=== PATIENT | female | born 1955 | race Caucasian/White ===

== ENCOUNTER 2020-08-01 | Outpatient (REF) | payer OTHER, SELFPAY ==
[2020-08-01 07:53] LABS: Hematocrit 29.8 % (37-47); Hemoglobin 8.8 g/dl (12.0-16.0); Mean Corpuscular HGB Conc 29.5 g/dl (31.0-35.0); Mean Corpuscular Hemoglobin 26.6 pg (27.0-33.0); Mean Platelet Volume 9.5 fL (9.4-12.3); Platelet Count 286 X10*3/uL (160-400); Red Blood Count 3.31 X10*6/uL (4.20-5.50); Red Cell Distribution Width 16.3 % (11.0-16.0); White Blood Count 4.7 X10*3/uL (4.8-10.8)
[2020-08-01 08:27] LABS: Anion Gap 14 (12-20); Blood Urea Nitrogen 16 mg/dL (9-16); Calcium 9.9 mg/dL (8.4-10.2); Carbon Dioxide 24 mmol/L (22-29); Chloride 106 mmol/L (96-108); Estimated Glomerular Filt Rate > 60; Glucose Random 90 mg/dL (60-115); Potassium 3.8 mmol/l (3.3-5.1); Sodium 140 mmol/L (135-145)
== END 2020-08-01 00:01 | disposition home or self-care (01) ==
LOC: HO.MMNH1L
PROVIDERS: Visit Provider Family Medicine
DX: I71.9 Aortic aneurysm of unspecified site, without rupture (principal); I10 Essential (primary) hypertension; Z95.1 Presence of aortocoronary bypass graft
CPT/HCPCS: 36415; 80048; 85027

== ENCOUNTER → 2020-10-25 10:09 | Outpatient (BNVA) | payer OTHER, SELFPAY | PROVIDERS: PCP Nurse Practitioner Family; Visit Provider Family Medicine Adult Medicine | DX: Z76.89 Persons encountering health services in other specified circumstances (principal) ==

== ENCOUNTER → 2020-11-29 13:10 | Outpatient (BNVA) | payer OTHER, SELFPAY | PROVIDERS: PCP Nurse Practitioner Family; Visit Provider Family Medicine Adult Medicine ==

== ENCOUNTER → 2021-01-05 11:58 | Outpatient (BNVA) | payer BC, MEDICARE, SELFPAY | PROVIDERS: PCP Nurse Practitioner Family; Visit Provider Family Medicine Adult Medicine | DX: S88.112A Complete traumatic amputation at level between knee and ankle, left lower leg, initial encounter (principal); I73.9 Peripheral vascular disease, unspecified; Z79.899 Other long term (current) drug therapy | CPT/HCPCS: 99212 ==

== ENCOUNTER → 2021-02-09 10:49 | Outpatient (BNVA) | payer MEDICARE, SELFPAY | PROVIDERS: PCP Nurse Practitioner Family; Visit Provider Family Medicine Adult Medicine | DX: S88.112D Complete traumatic amputation at level between knee and ankle, left lower leg, subsequent encounter (principal); I73.9 Peripheral vascular disease, unspecified | CPT/HCPCS: Q3014 ==

== ENCOUNTER → 2021-03-23 13:34 | Outpatient (BNVA) | payer BC, SELFPAY | PROVIDERS: PCP Nurse Practitioner Family; Visit Provider Family Medicine Adult Medicine | DX: S88.112A Complete traumatic amputation at level between knee and ankle, left lower leg, initial encounter (principal); I73.9 Peripheral vascular disease, unspecified; Z79.899 Other long term (current) drug therapy | CPT/HCPCS: 99212 ==

== ENCOUNTER → 2021-04-20 13:53 | Outpatient (BNVA) | payer BC, SELFPAY | PROVIDERS: PCP Nurse Practitioner Family; Visit Provider Family Medicine Adult Medicine | DX: I73.9 Peripheral vascular disease, unspecified (principal); S88.112D Complete traumatic amputation at level between knee and ankle, left lower leg, subsequent encounter | CPT/HCPCS: 99212 ==

== ENCOUNTER → 2021-05-18 15:28 | Outpatient (BNVA) | payer BC, SELFPAY | PROVIDERS: PCP Nurse Practitioner Family; Visit Provider Family Medicine Adult Medicine | DX: S88.112D Complete traumatic amputation at level between knee and ankle, left lower leg, subsequent encounter (principal); I73.9 Peripheral vascular disease, unspecified | CPT/HCPCS: 99212 ==

== ENCOUNTER → 2021-06-14 14:53 | Outpatient (BNVA) | payer MEDICARE, SELFPAY | PROVIDERS: PCP Nurse Practitioner Family; Visit Provider Nurse Practitioner Family | DX: Z51.81 Encounter for therapeutic drug level monitoring (principal); T87.89 Other complications of amputation stump; I73.9 Peripheral vascular disease, unspecified | CPT/HCPCS: 99212 ==

== ENCOUNTER → 2021-07-11 11:31 | Outpatient (BNVA) | payer MEDICARE, SELFPAY | PROVIDERS: PCP Nurse Practitioner Family; Visit Provider Family Medicine Adult Medicine | DX: Z51.81 Encounter for therapeutic drug level monitoring (principal); I73.9 Peripheral vascular disease, unspecified; Z89.512 Acquired absence of left leg below knee | CPT/HCPCS: 99212 ==

== ENCOUNTER → 2021-10-06 11:48 | Outpatient (BNVA) | payer MEDICARE, SELFPAY | PROVIDERS: PCP Nurse Practitioner Family; Visit Provider Internal Medicine | DX: M54.50 Low back pain, unspecified (principal); M25.561 Pain in right knee | CPT/HCPCS: 99212 ==

== ENCOUNTER 2021-11-15 07:10 | Outpatient (REF) | payer MEDICARE, SELFPAY ==
--- NOTE | ~2021-11-15 | XR_ITS ---
EXAMINATION: XR LUMBOSACRAL SPINE CLINICAL INFORMATION: Low back pain COMPARISON: None TECHNIQUE: Three views of the lumbosacral spine. FINDINGS: Bone alignment is normal. There is a mild old L2 vertebral body compression fracture. No acute fracture is seen. There is degenerative spondylosis greatest at L1-L2. There is degenerative disc disease at T12-L1, L1-L2 and L5-S1. There is lower lumbar spine facet arthritis. There is evidence of atherosclerotic disease. There is arthritis at the hip joints. XR/XR lumbar spine 2-3V IMPRESSION: Old L2 vertebral body compression fracture. Degenerative changes.
== END 2021-11-15 07:11 | disposition home or self-care (01) ==
LOC: HO.RADIR 07:10
PROVIDERS: Visit Provider Internal Medicine
DX: M25.561 Pain in right knee (principal); M54.50 Low back pain, unspecified; Z79.899 Other long term (current) drug therapy; Z87.891 Personal history of nicotine dependence
CPT/HCPCS: 64450; 64454; 72100

== ENCOUNTER → 2021-11-17 08:53 | Outpatient (BNVA) | payer MEDICARE, SELFPAY | PROVIDERS: PCP Nurse Practitioner Family; Visit Provider Internal Medicine | DX: M25.561 Pain in right knee (principal); M47.816 Spondylosis without myelopathy or radiculopathy, lumbar region | CPT/HCPCS: Q3014 ==

== ENCOUNTER 2023-07-04 14:45 | Outpatient (AMB) | payer MEDICARE, SELFPAY ==
--- OUTSIDE RECORDS SUMMARY | 2023-07-04 14:46 | XMS_ITS | Continuity of Care Document ---
Author Name Unknown Organization [facility] Address [address] [place] [address]- Care Team Providers Care Payroll Supervisor Name Role Phone Mohamud NICHOLAS, Elver Tanner Primary Care Physician [phone] [facility] [facility] Date(s): 05/28/23 - 06/27/23 [facility] Physical Medicine and Rehabilitation [address] [place] [address]- Attending Physician: Alex Daugherty Admitting Physician: Alex Daugherty Referring Physician: AdmtrAlex Allergies, Adverse Reactions, Alerts No Known Medication Allergies Medications Alprazolam By Mouth, Refills 0, Maintenance, 09/15/21 11:04:00 EST, Partial fill upon patient request if the prescription is for a schedule II opioid drug. Start Date: 09/15/21 Status: Ordered Amlodipine By Mouth, Daily, 0 Refills, Maintenance, 09/15/21 11:04:00 EST, Partial fill upon patient request if the prescription is for a schedule II opioid drug. Start Date: 09/15/21 Status: Ordered aspirin 81 mg oral delayed release tablet 81 mg, 1, tablet, By Mouth, Daily, # 30 tablet, Refills 0, Maintenance, 05/28/23 13:07:00 EDT, Partial fill upon patient request if the prescription is for a schedule II opioid drug. Start Date: 05/28/23 Status: Ordered gabapentin 300 mg oral capsule 300 mg, 1, capsule, By Mouth, 3 times a day, Refills 0, Maintenance, 05/28/23 13:08:00 EDT, Partialfill upon patient request if the prescription is for a schedule II opioid drug. Start Date: 05/28/23 Status: Ordered Sertraline By Mouth, Daily, 0 Refills, Maintenance, 09/15/21 11:04:00 EST, Partial fill upon patient request if the prescription is for a schedule II opioid drug. Start Date: 09/15/21 Status: Ordered Tylenol 8 Hour Caplet = 1,300 mg, By Mouth, Every 8 hours, 0 Refills, Maintenance, 09/15/21 11:04:00 EST, Partial fill upon patient request if the prescription is for a schedule II opioid drug. Start Date: 09/15/21 Status: Ordered Problem List Condition Confirmation Course Effective Dates Status Health St atus Informant Obese class II Confirmed Active Social History Social History Type Response Smoking Status Former smoker, quit more than 30 days ago entered on: 01/12/22 Sex Patient Care team information Care Team Personnel Name: Elver Mallory NP Position: Reference Physician Member Role: PCP Address: Address: [address] [place] [address]- Care Team Related Persons Name: YONAS NAGY Address: [address] [address] Name: EMERITA NAGY
--- OUTSIDE RECORDS SUMMARY | 2023-07-04 14:46 | XMS_ITS | Continuity of Care Document ---
Author Name Unknown Organization [facility] Physical Hi dicine and Rehabilitation Address [address] [place] [address]- Care Team Providers Care Belt And Link Shop Supervisor Name Role Phone Mohamud NICHOLAS, Elver Tanner Primary Care Physician [facility] Date(s): 05/12/21 - 06/11/21 [facility] Medicine and Rehabilitation [address] [place] [address] Attending Physician: Alex Daugherty Admitting Physician: Alex Daugherty Referring Physician: Alex Daugherty
--- OUTSIDE RECORDS SUMMARY | 2023-07-04 14:46 | XMS_ITS | Continuity of Care Document ---
Author Name Unknown Organization [facility] ter Address [address] [place] [address]- Care Team Providers Care Contracts Administrator Name Role Phone Mona NICHOLAS, Vashti Duvall Primary Care Physician Encounter [facility] Date(s): 03/16/20 - 04/16/[address] [address]- [facility] Attending Physician: Maurice Mcleod MD Admitting Physician: Maurice Mcleod MD
--- OUTSIDE RECORDS SUMMARY | 2023-07-04 14:46 | XMS_ITS | Continuity of Care Document ---
Author Name Unknown Organization [facility] Physical [facility] dicine and Rehabilitation Address [address] [place] [address]- Care Team Providers Care Plaster Die Maker Name Role Phone Mohamud NICHOLAS, Elver Tanner Primary Care Physician En[place] [facility] [place] Date(s): 11/16/22 - 12/16/22 [facility] Medicine and Rehabilitation [address] [place] [address]- Attending Physician: Alex Daugherty Admitting Physician: Alex [...] opioid drug. Start Date: 09/15/21 Status: Ordered Sertraline By Mouth, Daily, 0 [...] Status Health St atus Informant Obese class I Confirmed Active Social History Social History Type Response Smoking Status Former smoker, quit more than 30 days ago entered on: 01/12/22 Sex Patient Care team information Care Team Personnel Name: Elver Mallory NP Position: Reference Physician Member Role: PCP Address: Address: [address] [place] [address]- Care Team Related Persons Name: YONAS NAYG Address: [address] [address] Name: EMERITA NAGY
--- OUTSIDE RECORDS SUMMARY | 2023-07-04 14:46 | XMS_ITS | Continuity of Care Document ---
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
--- OUTSIDE RECORDS SUMMARY | 2023-07-04 14:46 | XMS_ITS | Continuity of Care Document ---
Author Name Unknown Organization [facility] Physical Az dicine and Rehabilitation Address [address] [place] [address]- Care Team Providers Care Pipeline Maintenance Supervisor Name Role Phone Elver Mallory NP Primary Care Physician [phone] En[facility] [place] Date(s): 09/14/22 - 12/16/22 [facility] Physical Medicine and Rehabilitation [address] [place] [address]- Attending Physician: Mahesh Dennis MD Referring Physician: Elver Mallory NP Allergies, Adverse [...] Reference Physician Member Role: PCP Address: Address: [address] [place] [address]- Care Team Related Persons Name: YONAS NAGY Address: home [address] [place] [address] Name: EMERITA NAGY
--- OUTSIDE RECORDS SUMMARY | 2023-07-04 14:46 | XMS_ITS | Continuity of Care Document ---
Author Name Unknown Organization [facility] Address [address] [place] [address]- Care Team Providers Care Processor Inspector Name Role Phone Elver Mallory NP Primary Care Physician [phone] Encounter [facility] Date(s): 01/23/21 - 04/19/[address] [address] Discharge Disposition: A-D/C Home Attending Physician: Elver Mallory NP Admitting Physician: Elver Mallory NP Referring Physician: Elver Mallory NP
--- OUTSIDE RECORDS SUMMARY | 2023-07-04 14:46 | XMS_ITS | Continuity of Care Document ---
Author Name Unknown Organization [facility] Physical Me dicine and Rehabilitation Address [address] [place] [address]- Care Team Providers Care Wool Scourer Name Role Phone Mohamud NICHOLAS, Elver Tanner Primary Care Physician Encounter [facility] [place] Date(s): 03/15/23 - 03/22/23 [facility] Physical Medicine and Rehabilitation [address] [place] [address]- Attending Physician: Mahesh Dennis MD Allergies, Adverse Reactions, Alerts No Known Medication [...] atus Informant Obese class II Confirmed Active Vital Signs Most recent to oldest [Reference Range]: 1 Height 173 cm (03/15/23 9:13 AM) Weight 105.6 kg (03/15/23 9:13 AM) Oxygen Saturation [94-100 %] 96 % (03/15/23 9:13 AM) Pulse Rate [55-90 bpm] 86 bpm (03/15/23 9:13 AM) Body Mass Index [18.5-24.99 kg/m2] 35.28 kg/m2 *>HHI* (03/15/23 9:13 AM) Blood Pressure [90-138/55-84 mm Hg] 147/ 84mm Hg *H* (03/15/23 9:13 AM) Mode of Delivery (Oxygen) Room air (03/15/23 9:13 AM) Blood pressure sites Arm, left (03/15/23 9:13 AM) Social History Social History Type Response Smoking Status Former smoker, quit more than 30 days ago entered on: 01/12/22 Sex Patient Care team information Care Team Personnel Name: Elver Mallory NP Position: Reference Physician Member Role: PCP Address: Address: [address] [place] [address]- Care Team Related Persons Name: YONAS NAGY Address: home [address] [place] [address] Name: EMERITA NAGY
--- OUTSIDE RECORDS SUMMARY | 2023-07-04 14:46 | XMS_ITS | Continuity of Care Document ---
Author Name Unknown Organization [facility] Physical Me dicine and Rehabilitation Address Unknown Care Team Providers Care Automatic Vulcanizing Operator Name Role Phone Mohamud NICHOLAS, Elver Tanner Primary Care Physician [phone] Encounter [place] Date(s): 01/12/22 - 01/19/22 [facility] Physical Medicine and Rehabilitation Attending Physician: Baljinder Bianchi MD Referring Physician: Elver Mallory NP Allergies, [...] Date: 09/15/21 Status: Ordered Problem List Condition Effective Dates Status Health Status Inform ant Obese class I(Confirmed) Active Vital Signs Most recent to oldest [Reference Range]: 1 Height 173 cm (01/12/22 10:07 AM) Weight 98.4 kg (01/12/22 10:07 AM) Oxygen Saturation [94-100 %] 95 % (01/12/22 10:07 AM) Pulse Rate [55-90 bpm] 71 bpm (01/12/22 10:07 AM) Body Mass Index [18.5-24.99] 32.88 *>HHI* (01/12/22 10:07 AM) Blood Pressure [90-138/55-84 mm Hg] 124/ 81mm Hg (01/12/22 10:07 AM) Temperature [96.8-100.4 DegF] 97.0 DegF (01/12/22 10:07 AM) Mode of Delivery (Oxygen) Room air (01/12/22 10:07 AM) Blood pressure sites Arm, left (01/12/22 10:07 AM) Temperature Route Temporal (01/12/22 10:07 AM) Dry Weight 98.4 kg (01/12/22 10:07 AM) Social History Social History Type Response Smoking Status Former smoker, quit more than 30 days ago entered on: 01/12/22 Sex
--- OUTSIDE RECORDS SUMMARY | 2023-07-04 14:46 | XMS_ITS | Continuity of Care Document ---
Author Name Unknown Organization [facility] Physical Mi dicine and Rehabilitation Address [address] [place] [address]- Care Team Providers Care Third Cook Name Role Phone Elver Mallory NP Primary Care Physician [id number] Date(s): 05/28/23 - 06/04/23 [facility] Physical Medicine and Rehabilitation [address] [place] [address]- Attending Physician: Fernie Ko MD Referring Physician: Elver Mallory NP Allergies, [...] oldest [Reference Range]: 1 Height 173 cm (05/28/23 1:08 PM) Weight 106.7 kg (05/28/23 1:08 PM) Oxygen Saturation [94-100 %] 97 % (05/28/23 1:08 PM) Body Mass Index [18.5-24.99 kg/m2] 35.65 kg/m2 *>HHI* (05/28/23 1:08 PM) Blood Pressure [90-138/55-84 mm Hg] 138/ 77mm Hg (05/28/23 1:08 PM) Mode of Delivery (Oxygen) Room air (05/28/23 1:08 PM) Blood pressure sites Arm, left (05/28/23 1:08 PM) Weight Obtained Via Bed scale (05/28/23 1:08 PM) Social History Social History Type Response Smoking Status Former smoker, quit more than 30 days ago entered on: 01/12/22 Sex Patient Care team information Care Team Personnel Name: Elver Mallory NP Position: Reference Physician Member Role: PCP Address: Address: [address] [place] [address]- Care Team Related Persons Name: YONAS NAGY Address: home [address] [place] [address] Name: EMERITA NAGY
--- OUTSIDE RECORDS SUMMARY | 2023-07-04 14:46 | XMS_ITS | Continuity of Care Document ---
Author Name Unknown Organization [facility] Physical De dicine and Rehabilitation Address [address] [place] [address]- Care Team Providers Care Shaker Plate Operator Name Role Phone Elver Mallory NP Primary Care Physician Encounter [facility] [place] Date(s): 02/11/21 - 06/11/21 [facility] Physical Medicine and Rehabilitation [address] [place] [address]- Attending Physician: Mahesh Dennis MD Referring Physician: Elver Mallory NP
--- OUTSIDE RECORDS SUMMARY | 2023-07-04 14:46 | XMS_ITS | Continuity of Care Document ---
Author Name Unknown Organization [facility] Address [address] [place] [address]- Care Team Providers Care Turbine Inspector Name Role Phone Mohamud NICHOLAS, Elver Tanner Primary Care Physician [phone] [place] [facility] [place] 12[place]18/22 - 06/16/[address] [address]- Encounter Diagnosis Aftercare following joint replacement surgery(Final) - Discharge Disposition: A-D/C Home Attending Physician: Maxime Huntley MD Admitting Physician: Maxime Huntley MD Referring Physician: Maxime Huntley MD Allergies, Adverse Reactions, Alerts No Known [...] a schedule II opioid drug. Start Date: 8/1/23 Status: Ordered Sertraline By Mouth, Daily, 0 [...] Reference Physician Member Role: PCP Address: Address: [address] [place] [address]- Care Team Related Persons Name: YONAS NAGY Address: [address] [address] Name: EMERITA NAGY
--- OUTSIDE RECORDS SUMMARY | 2023-07-04 14:46 | XMS_ITS | Continuity of Care Document ---
Author Name Unknown Organization [facility] Physical Me dicine and Rehabilitation Address Unknown Care Team Providers Care Patients Transporter Name Role Phone Mohamud NICHOLAS, Elver Tanner Primary Care Physician [phone] Encounter [facility] [place] Date(s): 05/11/22 - 06/10/22 [facility] Physical Medicine and Rehabilitation Attending Physician: Alex Daugherty Admitting Physician: Alex Daugherty Referring Physician: Alex Daugherty Allergies, Adverse Reactions, Alerts No Known Medication [...] Status Inform ant Obese class I(Confirmed) Active Social History Social History Type Response Smoking Status Former smoker, quit more than 30 days ago entered on: 01/12/22 Sex
--- OUTSIDE RECORDS SUMMARY | 2023-07-04 14:46 | XMS_ITS | Continuity of Care Document ---
Author Name Unknown Organization [facility] Address [address] [place] [address]- Care Team Providers Care Product Marketing Manager Name Role Phone Elver Mallory NP Primary Care Physician [phone] Encounter [facility] [place] Date(s): 07/26/22 - 08/25/[address] [address]- Attending Physician: Alex Daugherty Admitting Physician: Alex [...] on: 01/12/22 Sex Patient Care team information Personnel Name: Mohamud NICHOLAS , Elver Tanner Address: Address: [address] [place] [address]
--- OUTSIDE RECORDS SUMMARY | 2023-07-04 14:46 | XMS_ITS | Continuity of Care Document ---
Author Name Unknown Organization [facility] Physical Me dicine and Rehabilitation Address Unknown Care Team Providers Care Plasma Center Technician Name Role Phone Mohamud NICHOLAS, Elver Tanner Primary Care Physician [place] [facility] [place] 01/12/22 - 02/11/22 [facility] Physical Medicine and Rehabilitation Attending Physician: Alex [...]
--- OUTSIDE RECORDS SUMMARY | 2023-07-04 14:46 | XMS_ITS | Continuity of Care Document ---
Author Name Unknown Organization [facility] Physical Me dicine and Rehabilitation Address Unknown Care Team Providers Care Time Clock Inspector Name Role Phone Mohamud NICHOLAS, Elver Tanner Primary Care Physician [place] [facility] [place] 05[place]11[place]22 - 05/18/22 [facility] Physical Medicine and Rehabilitation Attending Physician: Arnaldo Dennis MD Allergies, Adverse Reactions, Alerts No [...] oldest [Reference Range]: 1 Height 173 cm (05/11/22 9:38 AM) Weight 101.7 kg (05/11/22 9:38 AM) Oxygen Saturation [94-100 %] 96 % (05/11/22 9:38 AM) Pulse Rate [55-90 bpm] 88 bpm (05/11/22 9:38 AM) Body Mass Index [18.5-24.99] 33.98 *>HHI* (05/11/22 9:38 AM) Blood Pressure [90-138/55-84 mm Hg] 133/ 71mm Hg (05/11/22 9:38 AM) Mode of Delivery (Oxygen) Room air (05/11/22 9:38 AM) Blood pressure sites Arm, left (05/11/22 9:38 AM) Dry Weight 101.7 kg (05/11/22 9:38 AM) Social History Social History Type Response Smoking Status Former smoker, quit more than 30 days ago entered on: 01/12/22 Sex
--- OUTSIDE RECORDS SUMMARY | 2023-07-04 14:47 | XMS_ITS | Continuity of Care Document ---
Author Name Unknown Organization [facility] Address [address] [place] [address]- Care Team Providers Care Tobacco Packing Machine Operator Name Role Phone oMhamud NICHOLAS, Elver Tanner Primary Care Physician [place] [facility] [place] 11/17/21 - 05/10/[address] [address] Discharge Disposition: A-D/C Home Attending Physician: Elver [...]
--- OUTSIDE RECORDS SUMMARY | 2023-07-04 14:47 | XMS_ITS | Continuity of Care Document ---
Author Name Unknown Organization [facility] Address [address] [place] [address]- Care Team Providers Care Log Washer Name Role Phone Mohamud NICHOLAS, Elver Tanner Primary Care Physician [place] [facility] [place] 04/18/23 - 05/18/[address] [address]- Attending Physician: Alex Daugherty Admitting Physician: AdmtrAlex Referring Physician: Admtr, ArAna Allergies, Adverse Reactions, Alerts No Known Medication [...] Physician Member Role: PCP Address: Address: [address] [place] [address]- Care Team Related Persons Name: YONAS NAGY Address: home [address] [place] [address] [place] [address] Name: EMERITA NAGY
--- OUTSIDE RECORDS SUMMARY | 2023-07-04 14:47 | XMS_ITS | Continuity of Care Document ---
Author Name Unknown Organization [facility] ter Address [address] [place] [address]- Care Team Providers Care Tissue Coordinator Name Role Phone Mona NICHOLAS, Vashti Duvall Primary Care Physician Encounter [facility] Date(s): 12/02/19 - 12/02/[address] [address]- [facility] Attending Physician: Quentin HAINES, Adolfo Schmid
--- OUTSIDE RECORDS SUMMARY | 2023-07-04 14:47 | XMS_ITS | Continuity of Care Document ---
Author Name Unknown Organization [facility] Address [address] [place] [address]- Care Team Providers Care Communication Engineer Name Role Phone Elver Mallory NP Primary Care Physician [phone] Encounter [facility] Date(s): 03/14/21 - 06/28/[address] [address] Discharge Disposition: A-D/C Home Attending Physician: Elver Mallory NP Admitting Physician: Elver Mallory NP Referring Physician: Elver Mallory NP
--- OUTSIDE RECORDS SUMMARY | 2023-07-04 14:47 | XMS_ITS | Continuity of Care Document ---
Author Name Unknown Organization [facility] Address [address] [place] [address]- Care Team Providers Care Assistant City Attorney Name Role Phone Mohamud NICHOLAS, Elver Tanner Primary Care Physician Encounter [facility] [place] Date(s): 12/22/21 - 01/21/[address] [address]- Attending Physician: Alex Daugherty Admitting Physician: Alex [...]
--- OUTSIDE RECORDS SUMMARY | 2023-07-04 14:47 | XMS_ITS | Continuity of Care Document ---
Author Name Unknown Organization [facility] Physical Me dicine and Rehabilitation Address Unknown Care Team Providers Care Fire And Explosion Investigator Name Role Phone Elver Mallory NP Primary Care Physician [phone] Encounter [facility] [place] Date(s): 09/15/21 - 09/22/21 [facility] Physical Medicine and Rehabilitation Attending Physician: Mahesh Dennis MD Referring Physician: [...] oldest [Reference Range]: 1 Height 173 cm (09/15/21 11:01 AM) Weight 94.8 kg (09/15/21 11:01 AM) Oxygen Saturation [94-100 %] 97 % (09/15/21 11:01 AM) Pulse Rate [55-90 bpm] 74 bpm (09/15/21 11:01 AM) Body Mass Index [18.5-24.99] 31.67 *>HHI* (09/15/21 11:01 AM) Blood Pressure [90-138/55-84 mm Hg] 132/ 86mm Hg (09/15/21 11:01 AM) Temperature [96.8-100.4 DegF] 96.7 DegF *L* (09/15/21 11:01 AM) Blood pressure sites Arm, left (09/15/21 11:01 AM) Temperature Route Temporal (09/15/21 11:01 AM)
--- OUTSIDE RECORDS SUMMARY | 2023-07-04 14:47 | XMS_ITS | Continuity of Care Document ---
Author Name Unknown Organization [facility] Address [address] [place] [address]- Care Team Providers Care Roto Gravure Press Operator Name Role Phone Mohamud NICHOLAS, Elver Tanner Primary Care Physician Encounter [facility] [place] Date(s): 05/22/22 - 05/22/[address] [address] Discharge Disposition: A-D/C Home Attending Physician: Not on Staff, Attending MD Admitting Physician: Not on Staff, Admitting MD Referring Physician: Not on Staff, Referring MD Allergies, Adverse Reactions, Alerts No Known [...]
--- OUTSIDE RECORDS SUMMARY | 2023-07-04 14:47 | XMS_ITS | Continuity of Care Document ---
Author Name Unknown Organization [facility] Physical Me dicine and Rehabilitation Address Unknown Care Team Providers Care Poured Pipe Maker Name Role Phone Mohamud NICHOLAS, Elver Tanner Primary Care Physician Encounter [facility] [place] Date(s): 09/15/21 - 10/15/21 [facility] Physical Medicine and Rehabilitation Attending Physician: Alex Daugherty Admitting Physician: Alex Daughrety Referring Physician: Alxe Daugherty Allergies, Adverse Reactions, Alerts No Known [...]
--- OUTSIDE RECORDS SUMMARY | 2023-07-04 14:47 | XMS_ITS | Continuity of Care Document ---
Author Name Unknown Organization [facility] Address [address] [place] [address]- Care Team Providers Care Oxygen Furnace Operator Name Role Phone Mohamud NICHOLAS, Elver Tanner Primary Care Physician Encounter [facility] Date(s): 04/14/21 - 05/14/[address] [address]- Attending Physician: Alex Daugherty Admitting Physician: Alex Daugherty Referring Physician: Alex Daugherty
--- NOTE | 2023-07-04 15:11 | AM.OFFWIN_ITS ---
Intake Vital Signs 07/04/23 15:13 Height 5 ft 6 in Weight 232 lb BMI 37.4 BP 120/80 Blood Pressure Location Rt brachial Position Sitting Pulse 74 Pulse Source Pulse Oximeter Temp 97.9 F Temp Source Temporal Artery Scan Pulse Oximetry (%) 97 Intake Visit Reasons: EP, Shingles? ([phone]) Intake Note: pt is here for c/o possible shingles Patient Tobacco Use Status: Former Tobacco user Allergies No Known Allergies Allergy (Verified 07/04/23 15:12) Do you need a note to return to daycare/school/sports/work: Yes HPI HPI Comments History of Present Illness Details 67-year-old female who presents for a rash. Patient was receiving practice cortisone injections in preparation for her actual cortisone shots in the noticed a rash on her lower back side. She denies any pain, itching fever chills. her aide in the staff at the facility thought it might be shingles and wanted her to be evaluated [facility] Medical History Refused pneumococcal vaccination Lumbar spondylosis Right knee pain Low back pain History of left below knee amputation Phantom pain following amputation of lower limb Anxiety Occlusion of left femorotibial bypass graft AAA (abdominal aortic aneurysm) Smoker HTN (hypertension) Below-knee amputation of left lower extremity Peripheral arterial disease Surgical History (Updated 11/06/22 @ 10:09 by AYLA Gaston-SANTHOSH) History of total left hip replacement History of total right hip replacement History of angioplasty History of angioplasty Family History Father Colon cancer Mother HTN (hypertension) Stroke Brother Colon cancer Sister Stroke Breast cancer Social History Housing: Apartment Alcohol intake: never Patient Tobacco Use Status: Former Tobacco user Years Smoked: 42 years ago e-Cigarette/Vaping Use: Never Used Second Hand Smoke Exposure: Yes 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 No pain with palpation no excoriations. rash on the anterior surface of the right thigh with excoriations. puritic maculopapular Assessment & Plan Assessment & Plan (1) Rash: Code(s): R21 - Rash and other nonspecific skin eruption Plan rash on lower back consistent with a vesicular rash however in the absence of pain or any symptoms low suspicion for shingles. Rash on the anterior surface of the thigh with excoriations Puritic will prescribe steroid triamcinolone cream. Medications: New triamcinolone acetonide 0.1% 1 appl topical BID 30 grams 0RF Coding Level of Care Code Est Pt Level 3 (40262) Diagnoses Rash R21
[2023-07-04 15:13] VITALS: BP 120/80; PULSE 74; TEMP 36.6; O2SAT 97; BMI 37.4
== END 2023-07-04 15:38 | disposition home or self-care (01) ==
PROVIDERS: PCP Nurse Practitioner Family; Visit Provider Physician Assistant
DX: R21 Rash and other nonspecific skin eruption (principal)
CPT/HCPCS: 99213

== ENCOUNTER 2023-12-18 10:09 | Outpatient (AMB) | payer MEDICARE, SELFPAY ==
--- NOTE | 2023-12-18 10:13 | MHC.PC.OV ---
Vital Signs 12/18/23 10:14 Height 5 ft 6 in Weight 232 lb BMI 37.4 BP 132/80 Blood Pressure Location Rt brachial Position Sitting Pulse 78 Pulse Source Pulse Oximeter Pulse Oximetry (%) 96 Oxygen Delivery Method Room Air Intake Visit Reasons: Prosthetic Left Leg Check-up Intake Note: pt is here for follow up prosthetic leg check up Allergies No Known Allergies Allergy (Verified 12/18/23 11:48) Medication List - Last Reconciled 12/18/23 by LANEY Gaston acetaminophen (Tylenol) 325 mg PO QID PRN alprazolam 0.25 mg PO BID PRN 30 days amlodipine 5 mg PO DAILY aspirin 81 mg PO DAILY atorvastatin 10 mg PO DAILY gabapentin 1,200 mg PO 1 cap in the am, 2 caps at 2pm, 2 caps at night; 3 reserve 24 days sertraline 50 mg PO DAILY triamcinolone acetonide 0.1% 1 appl topical BID Tobacco use date assessed: 12/18/23 HPI Prosthetic Left Leg Check-up HPI Details Pt reports discoloration and coldness of her LLE stump. She reports that the area becomes purplish in color and becomes very cold. She reports intermittent numbness of this area as well. Pt does not have these symptoms of her hands. Pt is seeing vascular but can not get in to see her provider for some time. Will contact their office to try to find a sooner appointment. HTN: Blood pressure is stable, managed with amlodipine 5mg. Will order labs. Denies chest pain, shortness of breath, headache, dizziness, and blurred vision. [facility] Medical History Refused pneumococcal vaccination Lumbar spondylosis Right knee pain Low back pain Phantom pain following amputation of lower limb Anxiety Occlusion of left femorotibial bypass graft AAA (abdominal aortic aneurysm) Smoker HTN (hypertension) Below-knee amputation of left lower extremity Peripheral arterial disease Surgical History History of left below knee amputation History of total left hip replacement History of total right hip replacement History of angioplasty History of angioplasty Family History Father Colon cancer Mother HTN (hypertension) Stroke Brother Colon cancer Sister Stroke Breast cancer Social History Housing: Apartment Alcohol intake: never Patient Tobacco Use Status: Former Tobacco user Years Smoked: 42 years ago e-Cigarette/Vaping Use: Never Used Second Hand Smoke Exposure: Yes 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 1. Little interest or pleasure in doing things: not at all 2. Feeling down, depressed, or hopeless: several days 3. Trouble falling or staying asleep, or sleeping too much: several days 4. Feeling tired or having little energy: not at all 5. Poor appetite or overeating: not at all 6. Feeling bad about yourself - or that you are a failure or have let yourself or your family down: not at all 7. Trouble concentrating on things, such as reading the newspaper or watching television: not at all 8. Moving or speaking so slowly that other people could have noticed. Or the opposite - being so fidgety or restless that you have been moving around a lot more than usual: not at all 9. Thoughts that you would be better off or of hurting yourself in some way: not at all Total score: 2 Depression Screening Interpretation: Negative Depression Screening Done: Yes 00853 - PHQ-9 Billing: Yes Source: Developed by Drs. Álvaro Louise, Rhonda Mathis, Ricky Gentile and colleagues, with an educational anil from [employer]. Thrive Questionnaire Date Thrive assessed: 12/18/23 I am a: Patient What is your living situation today?: I have a steady place to live Within the past 12 months, did the food you bought not last and you didn't have the money to get more?: Never true Within the past 12 months, did you worry whether your food would run out before you got money to buy more?: Never true Do you have trouble paying for medicines?: No Do you have trouble getting transportation to medical appointments?: No Do you have trouble paying your heating and electricity bill?: No Do you have trouble taking care of your child, family member or friend?: No Do you have trouble with day-to-day activities such as bathing, preparing meals, shopping, managing finances, etc.?: No Are you currently unemployed and looking for a job?: No Are you interested in more education?: No Please select the resources that you would like help with: None Currently or been in a relationship where the following occur: no concerns reported THRIVE Score: 0 KIMBERLY-7 AMB Questionnaire KIMBERLY-7 Date KIMBERLY - 7 assessed: 12/18/23 Feeling nervous, anxious, or on edge: 0 = Not at all Not being able to stop or control worryin = Not at all Worrying too much about different things: 0 = Not at all Trouble relaxin = Not at all Being so restless that it is hard to sit still: 0 = Not at all Becoming easily annoyed or irritable: 0 = Not at all Feeling afraid as if something awful might happen: 0 = Not at all Total KIMBERLY-7 score (0-4 normal; 5-9 mild; 10-14 moderate; 15-21 severe): 0 Source: Developed by Drs. Álvaro Louise, Rhonda Mathis, Ricky Gentile and colleagues, with an educational anil from [employer]. KIMBERLY-7 Assessment Billing KIMBERLY-7 Assessment Tool: KIMBERLY-7 Assessment 38009 Review of Systems Const Reports as per HPI Physical exam (Primary Care) Vital Signs: Last Vital Signs Pulse 78 12/18/23 10:14 BP 132/80 12/18/23 10:14 Pulse Ox 96 12/18/23 10:14 Oxygen Delivery Method Room Air 12/18/23 10:14 BMI result Body Mass Index 37.4 Tobacco/Smoking Status: Tobacco use Status Tobacco use date assessed 12/18/23 12/18/23 10:26 Patient Tobacco Use Status Former Tobacco user 12/18/23 10:14 e-Cigarette/Vaping Use Never Used 12/18/23 10:14 PHQ-9: PHQ-9 Score PHQ-9: Total score 2 12/18/23 10:39 Depression Screening Interpretation: Negative Thrive Assessment: Date of Thrive Assessment Date Thrive assessed 12/18/23 12/18/23 10:26 Currently or been in a relationship where the following occur: no concerns reported Const General: cooperative Nutritional Appearance: obese Orientation/consciousness: patient oriented x3 Resp Effort & Inspection: normal respiratory effort Auscultation: clear to auscultation bilaterally Cardio Rate: regular rate Rhythm: regular rhythm Heart sounds: S1 normal heart sound present and S2 normal heart sound present Neuro General: patient oriented x3 Extrem Other: left BKA, purplish/bluish hue to stump, cool to touch, good cap refill Psych Appearance: grossly normal Mental Status: mental status grossly normal Speech and movement: Normal speech and movement present Affect: normal affect Attitude: cooperative Thought process: Normal thought process present Thought content: Normal thought content present Insight: Good insight present (Psych) Judgement: Good judgement present (Psych) Assessment and Plan Assessment & Plan (1) HTN (hypertension): Comment: please continue meds Code(s): I10 - Essential (primary) hypertension Plan: lab orders placed (2) Bluish skin discoloration: Code(s): R23.0 - Cyanosis Plan: contacting pt's vascular provider for sooner appointment Plan The patient agreed to the use of a medical record librarians teacher for this encounter. Scribed for AYLA Dixon-BC by Sharlene Servin medical record librarians teacher, on 12/18/2023 at 10:40 EST. Orders: Orders TSH reflex Free T4 Today I10 - Essential (primary) hypertension UA CC w/rflx Micro + Cult Today I10 - Essential (primary) hypertension MM screening mammo BI Today Z12.31 - Encounter for screening mammogram for malignant neoplasm of breast Lactic Acid Today R23.0 - Cyanosis Complete Blood Count Auto Diff Today I10 - Essential (primary) hypertension Comprehensive [place]. Panel Fast Today I10 - Essential (primary) hypertension Lipid Panel Today I10 - Essential (primary) hypertension Coding Level of Care Code Est Pt Level 3 (39033) Diagnoses HTN (hypertension) I10 Bluish skin discoloration R23.0 Additional Codes KIMBERLY-7 Assessment Billing - KIMBERLY-7 Assessment Tool: KIMBERLY-7 Assessment 18023 ([id number])
[2023-12-18 10:14] VITALS: BP 132/80; PULSE 78; O2SAT 96; BMI 37.4
== END 2023-12-18 13:43 | disposition home or self-care (01) ==
PROVIDERS: PCP Nurse Practitioner Family; Visit Provider Nurse Practitioner Family
DX: I10 Essential (primary) hypertension (principal); R23.0 Cyanosis
CPT/HCPCS: 99213

== ENCOUNTER 2024-03-26 13:47 | Outpatient (AMB) | payer MEDICARE, SELFPAY ==
--- OUTSIDE RECORDS SUMMARY | 2024-03-26 13:49 | XMS_ITS | Continuity of Care Document ---
Author Organization [facility] Address [address] [place] [id number]- Care Team Providers Care Shoe Parts Molder Name Role Phone Mohamud NICHOLAS, Elver Tanner Primary Care Physician [phone] [place] [facility] [place]/13/23 - 08/11/23 [facility] [address] [place] [id number]- Attending Physician: Mahesh Dennis MD Referring Physician: [...] Reference Physician Member Role: PCP Address: Address: [address] [place] [phone]- Care Team Related Persons Name: YONAS NAGY Address: [address] [address] Name: EMERITA NAGY
--- OUTSIDE RECORDS SUMMARY | 2024-03-26 13:49 | XMS_ITS | Continuity of Care Document ---
Author Organization [facility] Address [address] [place] [address]- Care Team Providers Care Seeing Eye Dog Trainer Name Role Phone Mohamud NICHOLAS, Elver Tanner Primary Care Physician Encounter [facility] [place] Date(s): 08/29/23 - 09/28/23 [facility] [address] [place] [phone]- Attending Physician: Alex Daugherty Admitting Physician: Alex [...] Physician Member Role: PCP Address: Address: [address] [place] [phone]- Care Team Related Persons Name: YONAS NAGY Address: home [address] [place] [address] [place] [address] Name: EMERITA NAGY
--- OUTSIDE RECORDS SUMMARY | 2024-03-26 13:49 | XMS_ITS | Continuity of Care Document ---
Author Organization [facility] Address [address] [place] [phone]- Care Team Providers Care Supplier Quality Manager Name Role Phone Mohamud NICHOLAS, Elver Tanner Primary Care Physician [phone] Encounter [facility] [place] Date(s): 07/12/23 - 08/11/23 [facility] [address] [place] [address]- Attending Physician: Alex Daugherty Admitting Physician: Alex [...] Reference Physician Member Role: PCP Address: Address: [address] [place] [address]- Care Team Related Persons Name: YONAS NAGY Address: [address] [address] Name: EMERITA NAGY
[2024-03-26 14:06] VITALS: BP 140/80; PULSE 65; TEMP 36.6; O2SAT 95; BMI 37.4
--- NOTE | 2024-03-26 14:06 | AM.OFFWIN_ITS ---
Intake Vital Signs 3 03/26/24 14:06 Height 5 ft 6 in Weight 232 lb BMI 37.4 BP 140/80 H Blood Pressure Location Lt brachial Position Sitting Pulse 65 Pulse Source Pulse Oximeter Temp 97.9 F Temp Source Temporal Artery Scan Pulse Oximetry (%) 95 Oxygen Delivery Method Room Air Intake Visit Reasons: EP RT Leg Infection Intake Note: pt is here today for rt leg infection started 03/14 Patient Tobacco Use Status: Former Tobacco user Allergies No Known Allergies Allergy (Verified 03/26/24 14:24) Do you need a note to return to daycare/school/sports/work: Yes HPI HPI Comments 2 History of Present Illness0 Details 68 y/o female patient who presents to [facility] in clinic with c/o Cellulitis right lower extremity. Pt [facility] 03[facility] for this infection and discharged home with PO Antibiotics. Pt reports that the skin is still red, and worried the infection is not resolved. Pt asking for more Abx medications. [facility] Medical History (Updated 03/24/24 @ 17:40 by LANEY Gaston) Cellulitis PAD (peripheral artery disease) Fatty liver Refused pneumococcal vaccination Lumbar spondylosis Right knee pain Low back pain Phantom pain following amputation of lower limb Anxiety Occlusion of left femorotibial bypass graft AAA (abdominal aortic aneurysm) Smoker HTN (hypertension) Below-knee amputation of left lower extremity Peripheral arterial disease Surgical History History of left below knee amputation History of total left hip replacement History of total right hip replacement History of angioplasty History of angioplasty Family History Father Colon cancer Mother HTN (hypertension) Stroke Brother Colon cancer Sister Stroke Breast cancer Social History Housing: Apartment Alcohol intake: never Patient Tobacco Use Status: Former Tobacco user Years Smoked: 42 years ago e-Cigarette/Vaping Use: Never Used Second Hand Smoke Exposure: Yes 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 Small area of redness, no edema, non tender, no drainage dry skin. Psych Speech and movement: Normal speech and movement present Assessment & Plan Assessment & Plan (1) Cellulitis of skin: Code(s): L03.90 - Cellulitis, unspecified Plan: - No signs of active infection - Small area of redness, healing - No need for Abx at this time. Coding Level of Care Code Est Pt Level 3 (98721) Diagnoses Cellulitis of skin L03.90 Time Spent (min) 15
== END 2024-03-26 15:17 | disposition home or self-care (01) ==
PROVIDERS: PCP Nurse Practitioner Family; Visit Provider Nurse Practitioner Family
DX: L03.90 Cellulitis, unspecified (principal)
CPT/HCPCS: 99213

== ENCOUNTER 2024-03-30 13:09 | Outpatient (AMB) | payer MEDICARE, SELFPAY ==
--- NOTE | 2024-03-30 13:18 | MHC.PC.OV ---
Vital Signs 03/30/24 13:20 Height 5 ft 6 in Weight 239 lb BMI 38.6 BP 140/80 H Blood Pressure Location Lt brachial Position Sitting Pulse 82 Pulse Source Pulse Oximeter Pulse Oximetry (%) 93 Oxygen Delivery Method Room Air Intake Visit Reasons: HDF ~ salazar Intake Note: Patient here to follow up on recent admit to hospital for cellulites. Allergies No Known Allergies Allergy (Verified 03/30/24 13:21) Tobacco use date assessed: 12/18/23 Fall risk assessment: No Falls in past year Last assessed Fall Risk: 03/30/24 Dental Screening Dental Screen Date: 03/30/24 Did you have a dental visit in the last 12 months?: No Did you have a dental problem in the last 6 months where you did not have access to dental care?: No Was dental information given to patient?: No HPI HDF ~ salazar HPI Details Pt was seen in the ER on 03/14 c/o RLE erythema. 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 Pt developed an open area with weeping. US showed no evidence of DVT. Labs showed no leukocytosis. Most likely strep was the pathogen causing cellulitis. Pt was given cefazolin and doxycycline. Pt was noted to have an LUISA. She was given fluids and NSAIDs and nephrotoxic agents were held. Pt is doing well today and reports that her leg is improving. Denies fever, chills, and dizziness. [facility] Medical History (Updated 03/30/24 @ 14:06 by LANEY Gaston) Cellulitis PAD (peripheral artery disease) Fatty liver Refused pneumococcal vaccination Lumbar spondylosis Right knee pain Low back pain Phantom pain following amputation of lower limb Anxiety Occlusion of left femorotibial bypass graft AAA (abdominal aortic aneurysm) Smoker HTN (hypertension) Below-knee amputation of left lower extremity Peripheral arterial disease Surgical History History of left below knee amputation History of total left hip replacement History of total right hip replacement History of angioplasty History of angioplasty Family History Father Colon cancer Mother HTN (hypertension) Stroke Brother Colon cancer Sister Stroke Breast cancer Social History Housing: Apartment Alcohol intake: never Patient Tobacco Use Status: Former Tobacco user Years Smoked: 42 years ago e-Cigarette/Vaping Use: Never Used Second Hand Smoke Exposure: Yes 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 How often do you have a drink containing alcohol?: 2-3 times a week 2. How many drinks containing alcohol do you have on a typical day when you are drinking?: 1 or 2 3. How often do you have six or more drinks on one occasion?: Never Total Score: 3 Score Reviewed/Action Taken: No KIMBERLY-7 AMB Questionnaire KIMBERLY-7 Date KIMBERLY - 7 assessed: 12/18/23 Source: Developed by Drs. Álvaro Louise, Rhonda Mathis, Ricky Gentile and colleagues, with an educational anil from [employer]. Physical exam (Primary Care) Vital Signs: Last Vital Signs Pulse 82 03/30/24 13:20 BP 140/80 H 03/30/24 13:20 Pulse Ox 93 03/30/24 13:20 Oxygen Delivery Method Room Air 03/30/24 13:20 BMI result Body Mass Index 38.6 Tobacco/Smoking Status: Tobacco use Status Tobacco use date assessed 12/18/23 03/30/24 13:20 Patient Tobacco Use Status Former Tobacco user 03/30/24 13:20 e-Cigarette/Vaping Use Never Used 03/30/24 13:20 Thrive Assessment: Date of Thrive Assessment Date Thrive assessed 12/18/23 03/30/24 13:20 Const General: cooperative Nutritional Appearance: obese Orientation/consciousness: patient oriented x3 Resp Effort & Inspection: normal respiratory effort Auscultation: clear to auscultation bilaterally Cardio Rate: regular rate Rhythm: regular rhythm Heart sounds: S1 normal heart sound present and S2 normal heart sound present Neuro General: patient oriented x3 Extrem Other: RLE with healing patch, very dry and scaly, faint erythema, no tenderness or warmth, no signs of infection, + dorsalis pedis pulse Psych Appearance: grossly normal Mental Status: mental status grossly normal Speech and movement: Normal speech and movement present Affect: normal affect Attitude: cooperative Thought process: Normal thought process present Thought content: Normal thought content present Insight: Good insight present (Psych) Judgement: Good judgement present (Psych) Assessment and Plan Assessment & Plan (1) Vitamin D deficiency: Code(s): E55.9 - Vitamin D deficiency, unspecified Plan: lab ordered (2) Cellulitis: Code(s): L03.90 - Cellulitis, unspecified Plan The patient agreed to the use of a medical lab director for this encounter. Scribed for LANEY Dixon by Sharlene Servin medical lab director, on 03/30/2024 at 13:35 EST. Orders: Orders Vitamin D 25-OH Total Today E55.9 - Vitamin D deficiency, unspecified Coding Level of Care Code Tele Est Pt Level 3 (18208) Diagnoses Vitamin D deficiency E55.9 Cellulitis L03.90
[2024-03-30 13:20] VITALS: BP 140/80; PULSE 82; O2SAT 93; BMI 38.6
== END 2024-03-30 15:33 | disposition home or self-care (01) ==
PROVIDERS: PCP Nurse Practitioner Family; Visit Provider Nurse Practitioner Family
DX: E55.9 Vitamin D deficiency, unspecified (principal); L03.90 Cellulitis, unspecified
CPT/HCPCS: 99213

== ENCOUNTER 2024-04-28 08:39 | Outpatient (AMB) | payer MEDICARE, SELFPAY ==
--- NOTE | 2024-04-28 09:00 | A.OFFPC_ITS ---
Vital Signs 04/28/24 09:01 04/28/24 09:49 Height 5 ft 6 in Weight 237 lb BMI 38.2 BP 140/98 H 140/98 H Blood Pressure Location Lt brachial Lt brachial Position Sitting Sitting Pulse 66 Pulse Source Pulse Oximeter Pulse Oximetry (%) 93 Oxygen Delivery Method Room Air Intake Visit Reasons: 5M F/U Intake Note: Patient here to discuss weight and f/u on cellulites. Allergies No Known Allergies Allergy (Verified 04/28/24 09:04) Tobacco use date assessed: 12/18/23 Dental Screening Dental Screen Date: 03/30/24 HPI 5M F/U HPI Details Pt reports weight gain. Pt has been working on her diet and remaining active. She would like to see a prison librarian, will refer. Pt reports increased anxiety, having a issue at work. Denies any SI or HI. Pt is teary aeyed and very anxious currently (most likely the cause of her elevated BP) [facility] Medical History (Updated 04/28/24 @ 10:08 by LANEY Gaston) Cellulitis PAD (peripheral artery disease) Fatty liver Refused pneumococcal vaccination Lumbar spondylosis Right knee pain Low back pain Phantom pain following amputation of lower limb Anxiety Occlusion of left femorotibial bypass graft AAA (abdominal aortic aneurysm) Smoker HTN (hypertension) Below-knee amputation of left lower extremity Peripheral arterial disease Surgical History History of left below knee amputation History of total left hip replacement History of total right hip replacement History of angioplasty History of angioplasty Family History Father Colon cancer Mother HTN (hypertension) Stroke Brother Colon cancer Sister Stroke Breast cancer Social History Housing: Apartment Alcohol intake: never Patient Tobacco Use Status: Former Tobacco user Years Smoked: 42 years ago e-Cigarette/Vaping Use: Never Used Second Hand Smoke Exposure: Yes 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 1. Little interest or pleasure in doing things: not at all 2. Feeling down, depressed, or hopeless: several days 3. Trouble falling or staying asleep, or sleeping too much: several days 4. Feeling tired or having little energy: not at all 5. Poor appetite or overeating: not at all 6. Feeling bad about yourself - or that you are a failure or have let yourself or your family down: not at all 7. Trouble concentrating on things, such as reading the newspaper or watching television: not at all 8. Moving or speaking so slowly that other people could have noticed. Or the opposite - being so fidgety or restless that you have been moving around a lot more than usual: not at all 9. Thoughts that you would be better off or of hurting yourself in some way: not at all Total score: 2 Depression Screening Interpretation: Negative Depression Screening Done: Yes 75726 - PHQ-9 Billing: Yes Source: Developed by Drs. Álvaro Louise, Rhonda Mathis, Ricky Gentile and colleagues, with an educational anil from [employer]. Thrive Questionnaire Date Thrive assessed: 12/18/23 AUDIT C Alcohol Use Questionnaire (AUDIT-C) 1. How often do you have a drink containing alcohol?: 2-3 times a week 2. How many drinks containing alcohol do you have on a typical day when you are drinking?: 1 or 2 3. How often do you have six or more drinks on one occasion?: Never Total Score: 3 Score Reviewed/Action Taken: No KIMBERLY-7 AMB Questionnaire KIMBERLY-7 Date KIMBERLY - 7 assessed: 12/18/23 Source: Developed by Drs. Álvaro Louise, Rhonda Mathis, Ricky Gentile and colleagues, with an educational anil from [employer]. Review of Systems Const Reports as per HPI Physical exam (Primary Care) Vital Signs: Last Vital Signs Pulse 66 04/28/24 09:01 BP 140/98 H 04/28/24 09:01 Pulse Ox 93 04/28/24 09:01 Oxygen Delivery Method Room Air 04/28/24 09:01 BMI result Body Mass Index 38.2 Tobacco/Smoking Status: Tobacco use Status Tobacco use date assessed 12/18/23 04/28/24 09:04 Patient Tobacco Use Status Former Tobacco user 04/28/24 09:04 e-Cigarette/Vaping Use Never Used 04/28/24 09:04 PHQ-9: PHQ-9 Score PHQ-9: Total score 2 04/28/24 09:37 Depression Screening Interpretation: Negative Thrive Assessment: Date of Thrive Assessment Date Thrive assessed 12/18/23 04/28/24 09:04 Const General: cooperative Nutritional Appearance: obese Orientation/consciousness: patient oriented x3 Resp Effort & Inspection: normal respiratory effort Auscultation: clear to auscultation bilaterally Cardio Rate: regular rate Rhythm: regular rhythm Heart sounds: S1 normal heart sound present and S2 normal heart sound present Neuro General: patient oriented x3 Psych Appearance: grossly normal Mental Status: mental status grossly normal Speech and movement: Normal speech and movement present Affect: normal affect Attitude: cooperative Thought process: Normal thought process present Thought content: Normal thought content present Insight: Good insight present (Psych) Judgement: Good judgement present (Psych) Assessment and Plan Assessment & Plan (1) Obesity: Code(s): E66.9 - Obesity, unspecified Plan: Referred to prison librarian (2) HTN (hypertension): Comment: bp checks at home Code(s): I10 - Essential (primary) hypertension Plan: bp checks at home, BP most likely elevated today due to anxiety/stress Plan The patient agreed to the use of a director of medical review for this encounter. Scribed for LANEY Dixon by Sharlene Servin director of medical review, on 04/28/2024 at 09:35 EST. Orders: Referrals [facility] Referral E66.9 - Obesity, unspecified Coding Level of Care Code Est Pt Level 3 (95030) Diagnoses Obesity E66.9 HTN (hypertension) I10
[2024-04-28 09:01] VITALS: BP 140/98; PULSE 66; O2SAT 93; BMI 38.2
[2024-04-28 09:49] VITALS: BP 140/98
== END 2024-04-28 09:55 | disposition home or self-care (01) ==
PROVIDERS: PCP Nurse Practitioner Family; Visit Provider Nurse Practitioner Family
DX: I10 Essential (primary) hypertension (principal); E66.9 Obesity, unspecified; Z68.38 Body mass index [BMI] 38.0-38.9, adult
CPT/HCPCS: 99213

== ENCOUNTER 2024-08-06 12:16 | Outpatient (REF) | payer MEDICARE, SELFPAY ==
[2024-08-06 16:15] LABS: MANUAL DIFF FLAG NO
[2024-08-06 16:20] LABS: Basophils Absolute Auto 0.1 X10*3/uL (0.0-0.2); Basophils Percent Auto 1.2 % (0-2); Eosinophils Absolute Auto 0.2 X10*3/uL (0.0-0.4); Eosinophils Percent Auto 4.1 % (0-4); Hematocrit 48.7 % (37.0-47.0); Hemoglobin 16.3 g/dl (12.0-16.0); Imm Gran Abs Auto 0.02 X10*3/uL (0.00-0.03); Imm Gran Pct Auto 0.3 % (0.0-0.4); Lymphocytes Absolute Auto 1.8 X10*3/uL (1.2-4.9); Lymphocytes Percent Auto 30.1 % (20-40); Mean Corpuscular HGB Conc 33.5 g/dl (31.0-35.0); Mean Corpuscular Hemoglobin 32.6 pg (27.0-33.0); Mean Corpuscular Volume 97.4 fL (80.0-98.0); Mean Platelet Volume 9.5 fL (9.4-12.3); Monocytes Absolute Auto 0.4 X10*3/uL (0.1-1.2); Monocytes Percent Auto 6.4 % (2-11); Neutrophils Absolute Auto 3.4 x10*3/uL (2.0-8.3); Neutrophils Percent Auto 57.9 % (45-73); Platelet Count 235 X10*3/uL (160-400); Red Cell Distribution Width 14.3 % (11.0-16.0); White Blood Count 5.9 X10*3/uL (4.8-10.8)
[2024-08-06 16:41] LABS: Alanine Aminotransferase 24 U/L (0-31); Albumin Level 4.4 g/dL (3.5-5.0); Alkaline Phosphatase 77 U/L (39-117); Anion Gap 13 (12-20); Aspartate Amino Transferase 22 U/L (5-31); Blood Urea Nitrogen 15 mg/dL (9-16); Calcium 10.2 mg/dL (8.4-10.2); Carbon Dioxide 22 mmol/L (22-29); Chloride 109 mmol/L (96-108); Cholesterol 238 mg/dL (<200); Estimated Glomerular Filt Rate > 60; Glucose Fasting 101 mg/dL (60-99); HDL Cholesterol 48 mg/dL (>40); LDL Cholesterol Calculated 135 mg/dL (<100); Potassium 4.1 mmol/L (3.3-5.1); Sodium 140 mmol/L (135-145); Total Protein 7.8 g/dL (6.5-8.0); Triglycerides 278 mg/dL (<150)
[2024-08-06 16:56] LABS: TSH reflex Free T4 2.69 uIU/mL (0.32-4.0); Vitamin D 25-OH Total 36.2 ng/mL (>30)
== END 2024-08-06 12:17 | disposition home or self-care (01) ==
LOC: HO.HMGCLDS 12:16
PROVIDERS: PCP Nurse Practitioner Family; Visit Provider Nurse Practitioner Family
DX: I10 Essential (primary) hypertension (principal); E55.9 Vitamin D deficiency, unspecified
CPT/HCPCS: 36415; 80053; 80061; 82306; 84443; 85025

== ENCOUNTER 2024-08-11 14:12 | Outpatient (AMB) | payer MEDICARE, SELFPAY ==
[2024-08-11 14:14] VITALS: BP 138/80; PULSE 70; O2SAT 98; BMI 38.4
--- NOTE | 2024-08-11 14:14 | MHC.PC.OV ---
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 Accompanied by: Self / Same As Patient Allergies No Known Allergies Allergy (Verified 08/11/24 14:42) Medication List - Last Reconciled 08/11/24 by LANEY Gaston acetaminophen (Tylenol) 325 mg PO QID PRN alprazolam 0.25 mg PO BID PRN 30 days amlodipine 5 mg PO DAILY aspirin 81 mg PO DAILY atorvastatin 10 mg PO DAILY blood pressure monitor (Blood Pressure Kit) use daily for htn gabapentin 1,200 mg PO 1 cap in the am, 2 caps at 2pm, 2 caps at night; 3 reserve 24 days sertraline 50 mg PO DAILY triamcinolone acetonide 0.1% 1 appl topical BID Tobacco use date assessed: 12/18/23 Fall risk assessment: No Falls in past year Last assessed Fall Risk: 08/11/24 Dental Screening Dental Screen Date: 03/30/24 HPI 3 Month F/U HPI Details HTN: Blood pressure is stable, managed with amlodipine 5mg. Dyslipidemia: Pt is currently on atorvastatin 10mg, though has not been on it for approx one month. Will increase this to 20mg. Denies chest pain, shortness of breath, headache, dizziness, and blurred vision. Pt's H&H were elevated. Will repeat CBC. [facility], [facility] Medical History Cellulitis PAD (peripheral artery disease) Fatty liver Refused pneumococcal vaccination Lumbar spondylosis Right knee pain Low back pain Phantom pain following amputation of lower limb Anxiety Occlusion of left femorotibial bypass graft AAA (abdominal aortic aneurysm) Smoker HTN (hypertension) Below-knee amputation of left lower extremity Peripheral arterial disease Surgical History History of left below knee amputation History of total left hip replacement History of total right hip replacement History of angioplasty History of angioplasty Family History Father Colon cancer Mother HTN (hypertension) Stroke Brother Colon cancer Sister Stroke Breast cancer Social History Housing: Apartment Alcohol intake: never Patient Tobacco Use Status: Former Tobacco user Years Smoked: 42 years ago e-Cigarette/Vaping Use: Never Used Second Hand Smoke Exposure: Yes 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 1. Little interest or pleasure in doing things: not at all 2. Feeling down, depressed, or hopeless: not at all 3. Trouble falling or staying asleep, or sleeping too much: nearly every day 4. Feeling tired or having little energy: nearly every day 5. Poor appetite or overeating: not at all 6. Feeling bad about yourself - or that you are a failure or have let yourself or your family down: not at all 7. Trouble concentrating on things, such as reading the newspaper or watching television: not at all 8. Moving or speaking so slowly that other people could have noticed. Or the opposite - being so fidgety or restless that you have been moving around a lot more than usual: not at all 9. Thoughts that you would be better off or of hurting yourself in some way: not at all Total score: 6 Depression Screening Interpretation: Negative Depression Screening Done: Yes 98904 - PHQ-9 Billing: Yes Source: Developed by Drs. Álvaro Louise, Rhonda Mathis, Ricky Gentile and colleagues, with an educational anil from [employer]. Thrive Questionnaire Date Thrive assessed: 08/11/24 I am a: Patient What is your living situation today?: I have a steady place to live Within the past 12 months, did the food you bought not last and you didn't have the money to get more?: Never true Within the past 12 months, did you worry whether your food would run out before you got money to buy more?: Never true Do you have trouble paying for medicines?: No Do you have trouble getting transportation to medical appointments?: No Do you have trouble paying your heating and electricity bill?: No Do you have trouble taking care of your child, family member or friend?: No Do you have trouble with day-to-day activities such as bathing, preparing meals, shopping, managing finances, etc.?: I choose not to answer this question Are you interested in more education?: No Please select the resources that you would like help with: Housing/Fdc and Food Currently or been in a relationship where the following occur: No concerns reported THRIVE Score: 0 AUDIT C Alcohol Use Questionnaire (AUDIT-C) 1. How often do you have a drink containing alcohol?: 2-4 times a month 2. How many drinks containing alcohol do you have on a typical day when you are drinking?: 3 or 4 3. How often do you have six or more drinks on one occasion?: Monthly Total Score: 5 Score Reviewed/Action Taken: Yes KIMBERLY-7 AMB Questionnaire KIMBERLY-7 Date KIMBERLY - 7 assessed: 08/11/24 Feeling nervous, anxious, or on edge: 1 = Several days Not being able to stop or control worryin = Not at all Worrying too much about different things: 0 = Not at all Trouble relaxin = Several days Being so restless that it is hard to sit still: 1 = Several days Becoming easily annoyed or irritable: 1 = Several days Feeling afraid as if something awful might happen: 1 = Several days Total KIMBERLY-7 score (0-4 normal; 5-9 mild; 10-14 moderate; 15-21 severe): 5 Source: Developed by Drs. Álvaro Louise, Rhonda Mathis, Ricky Gentile and colleagues, with an educational anil from [employer]. KIMBERLY-7 Assessment Billing KIMBERLY-7 Assessment Tool: KIMBERLY-7 Assessment 13348 Review of Systems Const Reports as per HPI Physical exam (Primary Care) Vital Signs: Last Vital Signs Pulse 70 08/11/24 14:14 BP 138/80 08/11/24 14:14 Pulse Ox 98 08/11/24 14:14 Oxygen Delivery Method Room Air 08/11/24 14:14 BMI result Body Mass Index 38.4 Tobacco/Smoking Status: Tobacco use Status Tobacco use date assessed 12/18/23 08/11/24 14:16 Patient Tobacco Use Status Former Tobacco user 08/11/24 14:16 e-Cigarette/Vaping Use Never Used 08/11/24 14:16 PHQ-9: PHQ-9 Score PHQ-9: Total score 6 08/11/24 14:42 Depression Screening Interpretation: Negative Thrive Assessment: Date of Thrive Assessment Date Thrive assessed 08/11/24 08/11/24 14:16 Currently or been in a relationship where the following occur: No concerns reported Const Other: uses walker, has a LLE prosthetic General: cooperative Nutritional Appearance: obese Orientation/consciousness: patient oriented x3 Resp Effort & Inspection: normal respiratory effort Auscultation: clear to auscultation bilaterally Cardio Rate: regular rate Rhythm: regular rhythm Heart sounds: S1 normal heart sound present and S2 normal heart sound present Neuro General: patient oriented x3 Psych Appearance: grossly normal Mental Status: mental status grossly normal Speech and movement: Normal speech and movement present Affect: normal affect Attitude: cooperative Thought process: Normal thought process present Thought content: Normal thought content present Insight: Good insight present (Psych) Judgement: Good judgement present (Psych) Coding Level of Care Code Est Pt Level 3 (87741) Diagnoses HTN (hypertension) I10 Dyslipidemia E78.5 Additional Codes KIMBERLY-7 Assessment Billing - KIMBERLY-7 Assessment Tool: KIMBERLY-7 Assessment 95221 ([id number]) Assessment & Plan Assessment & Plan (1) HTN (hypertension): Comment: bp checks at home Code(s): I10 - Essential (primary) hypertension Category: Medical Plan: BPs at home, call in with values (2) Dyslipidemia: Code(s): E78.5 - Hyperlipidemia, unspecified Category: Medical Plan: increased statin to 20mg, repeat choles in 2 months Orders: Orders Comprehensive [place]. Panel Fast 2 Months E78.5 - Hyperlipidemia, unspecified, I10 - Essential (primary) hypertension Lipid Panel 2 Months E78.5 - Hyperlipidemia, unspecified, I10 - Essential (primary) hypertension Complete Blood Count Auto Diff 2 Months E78.5 - Hyperlipidemia, unspecified, I10 - Essential (primary) hypertension Referrals Cologuard Test Z12.11 - Encounter for screening for malignant neoplasm of colon, Z12.12 - Encounter for screening for malignant neoplasm of rectum Medications: Changed From atorvastatin 20 mg PO DAILY To atorvastatin 20 mg PO DAILY 90 tabs 0RF
== END 2024-08-11 15:03 | disposition home or self-care (01) ==
PROVIDERS: PCP Nurse Practitioner Family; Visit Provider Nurse Practitioner Family
DX: I10 Essential (primary) hypertension (principal); E78.5 Hyperlipidemia, unspecified

== ENCOUNTER → 2024-08-11 14:12 | Outpatient (BNVA) | payer MEDICARE, SELFPAY | PROVIDERS: PCP Nurse Practitioner Family; Visit Provider Nurse Practitioner Family | DX: I10 Essential (primary) hypertension (principal); E78.5 Hyperlipidemia, unspecified | CPT/HCPCS: 96127; 99212 ==

== ENCOUNTER 2024-11-14 10:19 | Outpatient (REF) | payer MEDICARE, SELFPAY ==
--- OUTSIDE RECORDS SUMMARY | 2024-11-14 10:22 | XMS_ITS ---
Author Name [facility] Organization Unknown History of Medication Use Medication Directions Dispensed Refills Start Date End Date Stat Eliquis 2.5 mg tablet 03/14/2023 active aspirin 81 mg tablet,delayed release TAKE 1 TABLET BY MOUTH EVERY DAY 03/14/2023 active sulfamethoxazole 800 mg-trimethoprim 160 mg tablet TAKE 1 TABLET BY MOUTH 2 TIMES A DAY FOR 14 DAYS. 03/14/2023 active methocarbamol 750 mg tablet 03/14/2023 active meloxicam 15 mg tablet 03/14/2023 active amlodipine 5 mg tablet TAKE 1 TABLET (5 MG) ORALLY DAILY SCHEDULE NEXT PCP APPT FOR FUTURE REFILLS 03/14/2023 active atorvastatin 10 mg tablet TAKE 1 TABLET BY MOUTH EVERY DAY 03/14/2023 active ondansetron HCl 8 mg tablet 03/14/2023 active acetaminophen 500 mg tablet TAKE 2 TABLETS BY MOUTH EVERY 8 HOURS. 03/14/2023 active ondansetron 4 mg disintegrating tablet 03/14/2023 act myron oxycodone 5 mg tablet 03/14/2023 active gabapentin 300 mg capsule TAKE 1 CAPSULE IN THE AM 2 CAPS AT 2:00PM,2 CAPS AT NIGHT,3 RESERVE 03/14/2023 active sertraline 50 mg tablet TAKE 1 TABLET BY MOUTH EVERY DAY 03/14/2023 active pantoprazole 40 mg tablet,delayed release 03/14/2023 donnell delgado
--- OUTSIDE RECORDS SUMMARY | 2024-11-14 10:22 | XMS_ITS | Data Portability ---
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 She is pleased with her progress and mid range and long-term outcome from her replacement surgeries. She is back to work [employer]. Recommended return to the office for recheck in 6 months for her left hip. Not available 03/11/2023 13:36:51 Plan of Treatment Reminders Order Date Submit Date Provider Last Modified By Organization Details Last Modified Time Details Appointments None record ed. Lab None record ed. Referral None record ed. Procedures None record ed. Surgeries None record ed. Imaging XR, hip, unilat eral, 2 or 3 view 023 03/11/20 23 [facility], [address], [place], [address], 3 14:26:19 XR, hip, unilat eral, 2 or 3 view 023 03/11/20 23 [facility], [address], [place], [address], 3 14:26:19 Medication Orders None record ed. Patient TargetsNo targets recorded. Patient Instructions Encounter Date Encounter Id Patient Instructions Last Modified By Organization Details Last Modified Time 03/11/2023 [id number] Total of 6 view x-ray study is obtained today depicting both hips to be status post total hip arthroplasty there is no signs of failure fracture or loosening of any of the prosthetic elements there is no evidence for periprosthetic fracture nor periosteal reaction. Not available 03/11/2023 13:36:05 Reason for Referral None Reported. Procedures Surgical History Date Name Laterality Status Provider Name and Address Organization Details Recorded Time Hip Surgery completed Geraldo Leon [place] [facility], 03/11/2023 13:13:55 Imaging Results None recorded. Procedure Notes None recorded. Medical Equipment None Reported. Medications Name Sig Start Date Stop Date Status Note LastModified by Organization Details LastModified Time atorvastatin 10 mg tablet TAKE 1 TABLET BY MOUTH EVERY DAY active Not Available Not Available No t Available ondansetron HCl 8 mg tablet active Not Available Not Available Not Available meloxicam 15 mg tablet active Not Available Not Available No t Available amlodipine 5 mg tablet TAKE 1 TABLET (5 MG) ORALLY DAILY SCHEDULE NEXT PCP APPT FOR FUTURE REFILLS active Not Available Not Available No t Available sulfamethoxaz ole 800 mg-trimethopr im 160 mg tablet TAKE 1 TABLET BY MOUTH 2 TIMES A DAY FOR 14 DAYS. active Not Available Not Available No t Available aspirin 81 mg tablet,delaye d release TAKE 1 TABLET BY MOUTH EVERY DAY active Not Available Not Available No t Available acetaminophen 500 mg tablet TAKE 2 TABLETS BY MOUTH EVERY 8 HOURS. active Not Available Not Available No t Available triamcinolone acetonide 0.1 % topical cream APPLY TOPICALLY 2 TIMES A DAY active Not Available Not Available No t Available methocarbamol 750 mg tablet active Not Available Not Availabl e Not Available pantoprazole 40 mg tablet,delaye d release active Not Available Not Available No t Available gabapentin 300 mg capsule TAKE 1 CAPSULE IN THE AM 2 CAPS AT 2:00PM,2 CAPS AT NIGHT,3 RESERVE active Not Available Not Available No t Available ondansetron 4 mg disintegratin g tablet active Not Available Not Available Not Available sertraline 50 mg tablet TAKE 1 TABLET BY MOUTH EVERY DAY active Not Available Not Available No t Available amoxicillin 875 mg-potassium clavulanate 125 mg tablet TAKE 1 TABLET BY MOUTH TWICE A DAY active Not Available Not Available No t Available oxycodone 5 mg tablet active Not Available Not Available No t Available Eliquis 2.5 mg tablet active Not Available Not Available No t Available Vitals None Recorded Social History None recorded. Functional Status None recorded. Mental Status None recorded. Family History Nothing Reported. Medical History No medical history recorded. Gynecological HistoryNo gynecological history recorded. Obstetrics History GPAL:G 0 P 0 0 0 0 Past Encounters Encounter ID Performer Location Encounter Start Date Encounter Closed Date Diagnosis/Indication Diagnosis SNOMED-CT Code Diagnosis ICD10 Code Diagnosis Note [id number] MD [facility]J You [facility] [address] [facility] [address] [place] [address] 03/11/2023 13:02:19 03/11/2023 13:39:00 Pain of left hip joint [id number] 82150 M25.552 History of total replacement of right hip joint [id number] 00281 Z96.641 Health Concerns Section Related Observation LastModified by Organization Detai ls LastModified Time None Recorded Concern Status LastModified by Organization Details LastModified Time None Recorded Advance Directives Directive None Recorded Payers Encounter Date Sequence Insurance Name Policy Number Policy Alexandre Covered Member ID Alexandre Member ID Guarantor Name 03/11/2023 1 [facility]: MEDICARE PPO BLUE (MEDICARE REPLACEMENT PPO) [id number] Chuyita Tanner Billie [id number] Chuyita Wise Notes Date Note Type Note Provider Name and Address Organization Details Recorded Time 03/11/2023 text/html 67-year-old fema le is 1 year status post right-sided total hip arthroplasty and 6 months status post left-sided total hip arthroplasty. These dates are approximate and today's visit was scheduled as a time compromise so that both joints could be evaluated for routine surveillance. Chuyita has had no specific problems since her last visit to the office she reports making excellent progress and is enjoying the relief from her arthritis pain. She has experienced a decrease in swelling at her left leg such that she is now able to wear her preoperative BKA prosthetic. She continues to do physical therapy. YASH OLEARY PA-C [address] [facility] [address], [place], [address], [place] [facility], 03/11/2023 13:37:12 OBGyn Episode No OBEpisode recorded.
[2024-11-14 12:05] LABS: MANUAL DIFF FLAG NO
[2024-11-14 12:16] LABS: Basophils Absolute Auto 0.1 X10*3/uL (0.0-0.2); Basophils Percent Auto 0.9 % (0-2); Eosinophils Absolute Auto 0.2 X10*3/uL (0.0-0.4); Eosinophils Percent Auto 3.6 % (0-4); Hematocrit 45.9 % (37.0-47.0); Hemoglobin 15.4 g/dl (12.0-16.0); Imm Gran Abs Auto 0.03 X10*3/uL (0.00-0.03); Imm Gran Pct Auto 0.5 % (0.0-0.4); Lymphocytes Percent Auto 34.1 % (20-40); Mean Corpuscular HGB Conc 33.6 g/dl (31.0-35.0); Mean Corpuscular Volume 95.2 fL (80.0-98.0); Mean Platelet Volume 9.3 fL (9.4-12.3); Monocytes Absolute Auto 0.4 X10*3/uL (0.1-1.2); Monocytes Percent Auto 6.7 % (2-11); Neutrophils Absolute Auto 3.2 x10*3/uL (2.0-8.3); Neutrophils Percent Auto 54.2 % (45-73); Platelet Count 224 X10*3/uL (160-400); Red Blood Count 4.82 X10*6/uL (4.20-5.50); Red Cell Distribution Width 13.7 % (11.0-16.0); White Blood Count 5.9 X10*3/uL (4.8-10.8)
[2024-11-14 12:52] LABS: Alanine Aminotransferase 24 U/L (0-31); Albumin Level 4.2 g/dL (3.5-5.0); Alkaline Phosphatase 80 U/L (39-117); Anion Gap 13 (12-20); Aspartate Amino Transferase 22 U/L (5-31); Bilirubin Total 0.9 mg/dL (0.0-1.0); Blood Urea Nitrogen 17 mg/dL (9-16); Calcium 9.9 mg/dL (8.4-10.2); Carbon Dioxide 21 mmol/L (22-29); Chloride 112 mmol/L (96-108); Cholesterol 195 mg/dL (<200); Estimated Glomerular Filt Rate > 60; Glucose Fasting 88 mg/dL (60-99); HDL Cholesterol 41 mg/dL (>40); LDL Cholesterol Calculated 95 mg/dL (<100); Potassium 4.2 mmol/L (3.3-5.1); Sodium 142 mmol/L (135-145); Total Protein 7.7 g/dL (6.5-8.0); Triglycerides 295 mg/dL (<150)
== END 2024-11-14 10:20 | disposition home or self-care (01) ==
LOC: HO.HMGCLDS 10:19
PROVIDERS: PCP Nurse Practitioner Family; Visit Provider Nurse Practitioner Family
DX: I10 Essential (primary) hypertension (principal); E78.5 Hyperlipidemia, unspecified
CPT/HCPCS: 36415; 80053; 80061; 85025

== ENCOUNTER 2025-01-06 13:15 | Outpatient (AMB) | payer MEDICARE, SELFPAY ==
--- NOTE | 2025-01-06 13:18 | A.OFFPC_ITS ---
Vital Signs 01/06/25 13:20 Height 5 ft 6 in Weight 247 lb BMI 39.9 BP 144/80 H Blood Pressure Location Lt brachial Position Sitting Pulse 85 Pulse Source Pulse Oximeter Pulse Oximetry (%) 96 Intake Visit Reasons: 5 months f/up Intake Note: pt is here for 5 mon f.up Copper Etcher Required: No Accompanied by: Self / Same As Patient Allergies No Known Allergies Allergy (Verified 01/06/25 14:07) Medication List - Last Reconciled 01/06/25 by AYLA Gaston- acetaminophen (Tylenol) 325 mg PO QID PRN alprazolam 0.25 mg PO BID PRN 30 days amlodipine 5 mg PO DAILY aspirin 81 mg PO DAILY atorvastatin 20 mg PO DAILY blood pressure monitor (Blood Pressure Kit) use daily for htn gabapentin 1,200 mg PO 1 cap in the am, 2 caps at 2pm, 2 caps at night; 3 reserve 24 days semaglutide (Ozempic) 0.25 mg (0.368 mL) subcut QWEEK sertraline 50 mg PO DAILY triamcinolone acetonide 0.1% 1 appl topical BID Tobacco use date assessed: 01/06/25 Fall risk assessment: No Falls in past year Last assessed Fall Risk: 01/06/25 Dental Screening Dental Screen Date: 01/06/25 Did you have a dental visit in the last 12 months?: Yes Did you have a dental problem in the last 6 months where you did not have access to dental care?: No Was dental information given to patient?: Patient has dentist HPI 5 months f/up HPI Details Chief Complaint The patient presents for follow-up of elevated fasting blood sugar, hyperlipidemia, and hypertension management. History of Present Illness The patient is a 69-year-old female presenting with elevated fasting blood sugar, hyperlipidemia, and hypertension. Her cholesterol levels have shown improvement under statin therapy, but she continues to have elevated trigly cerides. The decision has been made to focus on dietary interventions for triglyceride management, with plans to re-evaluate laboratory results in two months. For her condition of morbid obesity and fasting hyperglycemia, a regimen of Ozempic will be initiated to improve glycemic control. The patient also reports a chronic dermatological concern, treated minimally with topical triamcinolone cream, and is being referred to dermatology due to insufficient response. As for her high blood pressure I am going to increase her amlodipine from 5 mg to 10 mg Social History - Current nutritional focus is on dietar y modifications to manage hyperlipidemia. - Weight management is a concern due to morbid obesity. Health Maintenance - Discussion on dietary modifications fo r triglyceride management. Review of Systems Physical Exam General: Cooperative, healthy appearing, comfortable, no acute distress and well developed, morbidly obese Orientation: Patient oriented x3 Limitations: LLE prosthetic Head: Normal to inspection Ears: Hearing grossly normal bilaterally Nose: Normal external nose present Face and sinus: Normal facial exam Eyes: Appearance normal, both eyes and all related structures Neck: Normal visual inspection and Yes full ROM Respiratory: Normal respiratory effort and able to speak in complete sentences. Clear to auscultation bilaterally Cardiovascular: Regular rate and rhythm. Normal S1 and S2 GI: Normal to inspection. Soft to palpation and nontender Skin: macular, erythematous palques to posterior neck, anterior chest (? psoriasis vs eczema) Neuro: Patient oriented x3 Extremities: Normal to inspection Results Plan The patient will maintain her current medication regimen while implementing dietary changes to improve triglyceride levels. Follow-up on cholesterol levels is scheduled in two months. Ozempic therapy will be started for management of fasting hyperglycemia due to morbid obesity. A dermatology evaluation is necessary to further investigate skin concerns and refine treatment. Discussion Notes I discussed with the patient the management of hyperlipidemia and fasting blood sugar, emphasizing the role of dietary modifications alongside the current medication therapy. The initiation of Ozempic was agreed upon to address glycemic issues related to obesity. The necessity for a dermatology referral was also covered, detailing the limited success of current treatments and the need for specialized evaluation to differentiate between eczema and psoriasis. Patient Instructions - Implement dietary modifications to aid in the management of triglyceride levels. - Begin Ozempic therapy as directed. - Follow-up in two months for cholestero l and blood sugar reassessment. - Attend dermatology referral appointmen t for further evaluation of skin condition. -increase BP medication [facility] Medical History Cellulitis PAD (peripheral artery disease) Fatty liver Refused pneumococcal vaccination Lumbar spondylosis Right knee pain Low back pain Phantom pain following amputation of lower limb Anxiety Occlusion of left femorotibial bypass graft AAA (abdominal aortic aneurysm) Smoker HTN (hypertension) Below-knee amputation of left lower extremity Peripheral arterial disease Surgical History History of left below knee amputation History of total left hip replacement History of total right hip replacement History of angioplasty History of angioplasty Family History Father Colon cancer Mother HTN (hypertension) Stroke Brother Colon cancer Sister Stroke Breast cancer Social History Housing: Apartment Alcohol intake: never Patient Tobacco Use Status: Former Tobacco user Years Smoked: 42 years ago e-Cigarette/Vaping Use: Never Used Second Hand Smoke Exposure: Yes 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 1. Little interest or pleasure in doing things: not at all 2. Feeling down, depressed, or hopeless: not at all 3. Trouble falling or staying asleep, or sleeping too much: nearly every day 4. Feeling tired or having little energy: nearly every day 5. Poor appetite or overeating: not at all 6. Feeling bad about yourself - or that you are a failure or have let yourself or your family down: not at all 7. Trouble concentrating on things, such as reading the newspaper or watching television: not at all 8. Moving or speaking so slowly that other people could have noticed. Or the opposite - being so fidgety or restless that you have been moving around a lot more than usual: not at all 9. Thoughts that you would be better off or of hurting yourself in some way: not at all Total score: 6 Depression Screening Interpretation: Negative Depression Screening Done: Yes 51441 - PHQ-9 Billing: Yes Source: Developed by Drs. Álvaro Louise, Rhonda Mathis, Ricky Gentile and colleagues, with an educational anil from [employer]. Thrive Questionnaire Date Thrive assessed: 01/06/25 I am a: Patient What is your living situation today?: I have a steady place to live Within the past 12 months, did the food you bought not last and you didn't have the money to get more?: Never true Within the past 12 months, did you worry whether your food would run out before you got money to buy more?: Never true Do you have trouble paying for medicines?: No Do you have trouble getting transportation to medical appointments?: I choose not to answer this question Do you have trouble paying your heating and electricity bill?: I choose not to answer this question Do you have trouble taking care of your child, family member or friend?: I choose not to answer this question Do you have trouble with day-to-day activities such as bathing, preparing meals, shopping, managing finances, etc.?: I choose not to answer this question Are you currently unemployed and looking for a job?: I choose not to answer this question Are you interested in more education?: I choose not to answer this question Please select the resources that you would like help with: Food Currently or been in a relationship where the following occur: I choose not to answer THRIVE Score: 0 AUDIT C Alcohol Use Questionnaire (AUDIT-C) 1. How often do you have a drink containing alcohol?: Monthly or less 2. How many drinks containing alcohol do you have on a typical day when you are drinking?: 3 or 4 3. How often do you have six or more drinks on one occasion?: Less than monthly Total Score: 3 Score Reviewed/Action Taken: Yes KIMBERLY-7 AMB Questionnaire KIMBERLY-7 Date KIMBERLY - 7 assessed: 01/06/25 Feeling nervous, anxious, or on edge: 0 = Not at all Not being able to stop or control worryin = Not at all Worrying too much about different things: 0 = Not at all Trouble relaxin = Not at all Being so restless that it is hard to sit still: 0 = Not at all Becoming easily annoyed or irritable: 0 = Not at all Feeling afraid as if something awful might happen: 0 = Not at all Total KIMBERLY-7 score (0-4 normal; 5-9 mild; 10-14 moderate; 15-21 severe): 0 Source: Developed by Drs. Álvaro Louise, Rhonda Mathis, Ricky Gentile and colleagues, with an educational anil from [employer]. KIMBERLY-7 Assessment Billing KIMBERLY-7 Assessment Tool: KIMBERLY-7 Assessment 11170 Physical exam (Primary Care) Vital Signs: Last Vital Signs Pulse 85 01/06/25 13:20 BP 144/80 H 01/06/25 13:20 Pulse Ox 96 01/06/25 13:20 BMI result Body Mass Index 39.9 Tobacco/Smoking Status: Tobacco use Status Tobacco use date assessed 01/06/25 01/06/25 13:21 Patient Tobacco Use Status Former Tobacco user 01/06/25 13:21 e-Cigarette/Vaping Use Never Used 01/06/25 13:21 PHQ-9: PHQ-9 Score PHQ-9: Total score 6 01/06/25 13:21 Depression Screening Interpretation: Negative Thrive Assessment: Date of Thrive Assessment Date Thrive assessed 01/06/25 01/06/25 13:21 Currently or been in a relationship where the following occur: I choose not to answer Coding Level of Care Code Est Pt Level 3 (10139) Diagnoses Rash R21 Dyslipidemia E78.5 Obesity E66.9 Elevated fasting blood sugar R73.01 HTN (hypertension) I10 Additional Codes KIMBERLY-7 Assessment Billing - KIMBERLY-7 Assessment Tool: KIMBERLY-7 Assessment 22314 ([id number]) PHQ-9 - 83054 - PHQ-9 Billing: Yes ([id number]) Assessment & Plan Assessment & Plan (1) Rash: Code(s): R21 - Rash and other nonspecific skin eruption Category: Medical (2) Dyslipidemia: Code(s): E78.5 - Hyperlipidemia, unspecified Category: Medical (3) Obesity: Code(s): E66.9 - Obesity, unspecified Category: Medical (4) Elevated fasting blood sugar: Code(s): R73.01 - Impaired fasting glucose Category: Medical (5) HTN (hypertension): Comment: bp checks at home Code(s): I10 - Essential (primary) hypertension Category: Medical Plan . Orders: Orders Comprehensive [place]. Panel Fast Today E66.9 - Obesity, unspecified, E78.5 - Hyperlipidemia, unspecified Lipid Panel Today E66.9 - Obesity, unspecified, E78.5 - Hyperlipidemia, unspecified Referrals Dermatology Referral R21 - Rash and other nonspecific skin eruption Medications: New semaglutide (Ozempic) for 4 weeks 0.25 mg (0.368 mL) subcut QWEEK 3 mL 0RF Changed From amlodipine 5 mg PO DAILY 90 tabs 1RF To amlodipine 10 mg PO DAILY 90 tabs 1RF
[2025-01-06 13:20] VITALS: BP 144/80; PULSE 85; O2SAT 96; BMI 39.9
--- OUTSIDE RECORDS SUMMARY | 2025-01-06 15:33 | XMS_ITS ---
Author Organization [facility] Care Team Providers Care Entry Level Marketing Representative Name Role Phone Jackson Lemus Unavailable Unavailable Yanni Wilde Unavailable Unavailable Allergies and adverse reactions Code CodeSystem Substance Reaction Severity StartDate Concern Status Latex Itching of skin (code- [id number], SNOMED CT) Moderate 07/01/2020 active Care Team Name Role Address Phone Organization Dates Jackson Lemus PCP [address], [address], [place] (Office): : [facility] 07/16/2020 - 08/09/2020 Yanni Wilde Attending Physician [address], [address], [place] (Office): [facility] 07/16/2020 - 08/09/2020 Immunizations Immunization Status Vaccine Details Vaccine Code CodeSystem Date Notes Influenza cancelled Influenza, split virus, trivalent, injectable, contains preservative 141 CVX created date: 07/25/2020 consent date: 07/26/2020 states she has never tried it, education provided, continues to refuse Influenza completed Influenza, split virus, trivalent, injectable, contains preservative 141 CVX created date: 07/02/2020 administer ed date: 07/01/2019 TB 2 Step Mantoux Skin Test completed tuberculin skin test; unspecified formulation Step 1 of Multi-step with next step required 98 CVX created date: 07/27/2020 consent date: 07/27/2020 administer ed date: 07/12/2020 TB 2 Step Mantoux Skin Test completed tuberculin skin test; unspecified formulation Step 1 of Multi-step with next step required 98 CVX created date: 07/02/2020 consent date: 07/27/2020 administer ed date: 07/05/2020 PCV13 (Pneumococcal Conjugate)Vaccin e completed pneumococcal conjugate vaccine, 13 valent 133 CVX created date: 07/02/2020 administer ed date: 07/03/2016 Mental Status Section Date Assessment Total Score Description 08/09/2020 BIMS 15 cognitively int act CAM 0 No delirium ind icated PHQ-9 00 07/20/2020 BIMS 15 cognitively int act CAM 0 No delirium ind icated PHQ-9 02 minimal depress ion Problems Problem # Description Date of onset Resolved Date Code CodeSystem Concern Status 1 ACQUIRED ABSENCE OF LEFT LEG BELOW KNEE 07/19/[address] active 2 ACQUIRED ABSENCE OF LEFT GREAT TOE 07/02/[address] active 3 ANXIETY DISORDER, UNSPECIFIED 07/02/[address] active 4 ENCOUNTER FOR ORTHOPEDIC AFTERCARE FOLLOWING SURGICAL AMPUTATION 07/02/[address] active 5 PAIN, UNSPECIFIED 07/02/[address] active 6 PERIPHERAL VASCULAR DISEASE, UNSPECIFIED 07/02/[address] active 7 REPEATED FALLS 07/02/[address] ac tive 8 AORTIC ANEURYSM OF UNSPECIFIED SITE, WITHOUT RUPTURE 07/01/[address] active 9 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, BILATERAL LEGS 07/01/[address] active 10 DIFFICULTY IN WALKING, NOT ELSEWHERE CLASSIFIED 07/01/[address] active 11 DYSPHAGIA, ORAL PHASE 07/01/[address] active 12 ESSENTIAL (PRIMARY) HYPERTENSION 07/01/[address] active 13 OTHER LACK OF COORDINATION 07/01/[address] active 14 OTHER MALAISE 07/01/[address] act myron 15 PARALYTIC GAIT 07/01/[address] acti ve 16 PERIPHERAL VASCULAR ANGIOPLASTY STATUS WITH IMPLANTS AND GRAFTS 07/01/[address] active 17 UNSTEADINESS ON FEET 07/01/[address] active Reason for Referral No Reasons for Referral Entered Social History Social History Observation Description Start Date End Date Code Code System Current Smoking Status Tobacco smoking consumption unknown 278716478 SNOMED CT Sex Assigned At Female 1955 41816-[address] [facility] Vital Signs Code Code System Vitals Name Values and Units Timing Information 29879-[address] [facility] Pain Level Value=0.0 08/09/2020 9279-[address] [facility] Respiratory Rate Value=18.0 Units=/m in 08/09/2020 8310-[address] [facility] Body Temperature Value=97.5 Units=?? F 08/09/2020 40866-[address] [facility] O2 % BldC Oximetry Value=98.0 Units= % 08/09/2020 8462-[address] [facility] Blood Pressure-Diastolic Value=73 Un its=mmHg 08/09/2020 8480-[address] [facility] Blood Pressure-Systolic Vitdy=838 Un its=mmHg 08/09/2020 8867-[address] [facility] Heart rate Value=74.0 Units=/min 92238-[address] [facility] Weight Zcdke=767.0 Units=Lbs 04/2020 8302-[address] [facility] Height Value=68.0 Units=Inches 07/01/2020
--- OUTSIDE RECORDS SUMMARY | 2025-01-06 15:33 | XMS_ITS | Clinical Summary ---
Author Organization [facility] Address [address] [place] [address] Care Team Providers Care Business Objects Consultant Name Role Phone Elver Mallory Primary Care Provider [phone] Allergies No known active allergies Medications Medication Sig Dispensed Refills Start Date End Date Status gabapentin (NEURONTIN) 300 MG capsule Take 1 capsule (300 mg total) by mouth every night at bedtime as needed. 1-2 tablets 0 Active amLODIPine (NORVASC) tablet 5 mg Take 1 tablet (5 mg total) by mouth daily. 0 01/27/2022 Active sertraline (ZOLOFT) 50 MG tablet Take 1 tablet (50 mg total) by mouth daily. 0 02/26/2022 Active acetaminophen (TYLENOL EXTRA STRENGTH) 500 MG tablet Take 2 tablets (1,000 mg total) by mouth every 8 (eight) hours as needed for pain. 60 tablet 0 11/06/2022 Active methocarbamol (ROBAXIN) 750 MG tablet Take 1 tablet (750 mg total) by mouth every 6 (six) hours as needed (spasm). 40 tablet 0 11/06/2022 Active oxyCODONE (ROXICODONE) 5 MG immediate release tablet Take 1-2 tablets (5-10 mg total) by mouth every 4 (four) hours as needed for pain. 40 tablet 0 11/06/2022 Active senna-docusate (PERICOLACE) 8.6-50 MG Take 1 tablet by mouth 2 (two) times a day. 30 tablet 0 11/06/2022 Active ondansetron (Zofran ODT) 4 MG disintegrating tablet Take 1 tablet (4 mg total) by mouth every 8 (eight) hours as needed for nausea. 20 tablet 0 11/06/2022 Active Aspirin Low Dose 81 MG EC tablet Take 1 tablet (81 mg total) by mouth daily. 0 11/18/2022 Active atorvastatin (LIPITOR) tablet 10 mg Take 1 tablet (10 mg total) by mouth daily. 0 11/19/2022 Active Active Problems Problem Noted Date Diagnosed Date Obesity (BMI 30-39.9) 03/28/2022 Dyspnea on exertion 03/28/2022 Deep vein thrombosis 10/28/1986 Overview: L-Leg DVT PAD (peripheral artery disease) Essential hypertension AAA (abdominal aortic aneurysm) Immunizations Name Administration Dates Next Due Covid-19 (Pfizer) Dilution Required 02/07/2021,0 01/17/2021 Family History Medical History Relation Name Comments No Sig Med Hx Brother 1 3 Cancer Brother 2 COLON Cancer Father COLON Diabetes Father Dementia Mother Stroke Mother Cancer Sister 1 4 GALLBLADDER, BR EAST X1 Colon cancer Sister 1 4 X1 Diabetes Sister 2 POSSIBLE Relation Name Status Comments Brother 1 3 Alive Brother 2 (Age 39) COLON CANC ER Father (Age 67) COLON CANC ER Mother Alive Sister 1 4 Alive Sister 2 (Age 53) UNKNOWN Social History Tobacco Use Types Packs/Day Years Used Date Smoking Tobacco: Former Cigarettes 1 9 Q uit: 1982 Smokeless Tobacco: Never Tobacco Cessation:Counseling Given: Not Answered Alcohol Use Standard Drinks/Week Comments Yes 3 (1 standard drink = 0.6 oz pur e alcohol) Sex and Gender Information Value Date Recorded Sex Assigned at Female 03/20/2022 12:25 PM EDT Gender Identity Female 03/20/2022 12:25 PM EDT Sexual Orientation Not on file Job Start Date Occupation Industry Not on file Not on file Not on file Last Filed Vital Signs Vital Sign Reading Time Taken Comments Blood Pressure 120/76 11/07/2022 7:30 AM EST Pulse 60 11/07/2022 7:30 AM EST Temperature 36.6 ??C (97.8 ??F) 11/07/2022 7:30 AM ES T Respiratory Rate 17 11/07/2022 7:30 AM EST Oxygen Saturation 95% 11/07/2022 7:30 AM EST Inhaled Oxygen Concentration - - Weight 91.2 kg (201 lb 1 oz) 11/05/2022 11:10 AM EST Height 167.6 cm (5' 6 ) 11/05/2022 11:10 AM EST Body Mass Index 32.45 11/05/2022 11:10 AM EST Plan of Treatment Health Maintenance Due Date Last Done Comments Hepatitis C Screening 1955 Depression Screening 1967 BMI Counseling 1973 Preventative Health Evaluation 1973 DTap / Tdap / Td (1 - Tdap) 1974 Colon Cancer Screening (Colonoscopy) 2000 Breast Cancer Screening (Mammogram) 2005 Shingrix-Zoster Vaccine (1 o f 2) 2005 Fall Risk Assessment 2020 Osteoporosis Screening (DEXA Scan) 2020 Pneumococcal Vaccine (1 of 1 - PCV) 2020 COVID-19 Vaccine (3 - 2023-2 5 season) 2024 02/07/2021, 01/17/2021 Influenza Vaccine (#1) 2024 RSV Adult > 60+ Yrs or (1 - 1-dose 75+ series) 2030 Hepatitis B Vaccines Aged Out No long er eligible based on patient's age to complete this topic RSV Ped < 20 months Aged Out No longe r eligible based on patient's age to complete this topic Medical Devices Implanted Type Area Mine Patrol Device Identifier Shelf Expiration Date Model / Serial / Lot Insignia Hip Stem-Std Offset Implanted:Qty : 1 on 04/09/2022 by Maxime Huntley MD [place] [facility] Total Joint Right: Hip [facility] 12/16/2026 5893-7778 / / [id number] Cemented Hip Stem #2 Implanted:Qty : 1 on 11/05/2022 by Maxime Huntley MD [place] [facility] Total Joint Left: Hip [id number] 12/20/2026 / [id number] / [id number] Tritanium Cluster Hole Shell 52mm Str-[facility] 729-12-47p-77 0473 - [id number] Implanted:Qty : 1 on 04/09/2022 by Maxime Huntley MD at [facility] Right: Hip [facility] [id number] 01/11/2027 702-04-52 E / / [id number] ++Dnu+Disc Use [id number] Hip Insrt Trident 0d Tommie 36mm Stry-Howm 670-72-31l-20 0918 - [id number] Implanted:Qty : 1 on 04/09/2022 by Maxime Huntley MD at [facility] Right: Hip [employer] [facility] [id number] 02/21/2027 623-00-36 E / / [id number] Lp Hex Screw 6.5x30mm Stry-Howm 3858-1376-511 478 - [id number] Implanted:Qty : 1 on 04/09/2022 by Maxime Huntley MD at [facility] Right: Hip [facility] [id number] 02/18/2027 6506-7858 / / [id number] Lp Hex Screw 6.5x25mm Stry-Howm 2530-1627-018 458 - [id number] Implanted:Qty : 1 on 04/09/2022 by Maxime Huntley MD at [facility] Right: Hip [facility] [id number] 01/09/2027 3947-7495 / / [id number] Hip Head Delta Biolox 36mm-2.5 Stry-Howm 0657-9-543-54 9191 - [id number] Implanted:Qty : 1 on 04/09/2022 by Maxime Huntley MD at [facility] Right: Hip [facility] 01/26/2027 6570-0-43 6 [id number] Lp Hex Screw 6.5x25mm Stry-Howm 8402-7888-474 458 - [id number] Implanted:Qty : 1 on 11/05/2022 by Maxime Huntley MD at [facility] Left: Hip [facility] [id number] 09/17/2027 9702-5213 / / [id number] Lp Hex Screw 6.5x20mm Stry-Howm 3415-2464-459 457 - [id number] Implanted:Qty : 1 on 11/05/2022 by Maxime Huntley MD at [facility] Left: Hip [facility] [id number] 08/29/2027 2786-8364 / / UTPE Tritanium Cluster Hole Shell 52mm Stry-How 156-54-00n-77 0473 - [id number] Implanted:Qty : 1 on 11/05/2022 by Maxime Huntley MD at [facility] Left: Hip [facility] [id number] 08/21/2027 702-04-52 E / / [id number] Liner Trident X3 0 Deg 36mm 5.9mm Sz E Stry-How 575-75-78g-89 3661 - [id number] Implanted:Qty : 1 on 11/05/2022 by Maxime Huntley MD at [facility] Left: Hip [facility] [id number] 10/01/2027 723-00-36 E / / [id number] Kit Prep Total Hip Bone Imp Smn-Or[facility] 855861-302110 - [id number] Implanted:Qty : 1 on 11/05/2022 by Maxime Huntley MD at [facility] Left: Hip [employer] [facility] [id number] 04/09/2032 109598 / / [id number] Hip Head Delta Sofya 36mm 0 Stry-How 2998-3-155-62 8812 - [id number] Implanted:Qty : 1 on 11/05/2022 by Maxime Huntley MD at [facility] Left: Hip [facility] [id number] 08/06/2027 6570-0-13 [id number] Cement Bone Surg Simplex Radiopq Stry-How 2523-9-465-11 4092 - [id number] Implanted:Qty : 1 on 11/05/2022 by Maxime Huntley MD at [facility] Left: Hip [facility] [id number] 09/26/2023 6191-- 0 / / 0000 Cement Bone Surg Simplex Radiopq Roselyn-Suha 1222-4-510-11 4092 - [id number] Implanted:Qty : 1 on 11/05/2022 by Maxime Huntley MD at [facility] Left: Hip [facility] [id number] 09/26/2023 6191-1-01 0 / / 0000 Advance Directives For more information, please contact: [phone] Documents on File Type Date Recorded Patient Bull Chain Operator Expl anation Advance Directive and Living Will 04/09/2022 7:09 AM Latest Code Status on File Code Status Date Activated Date Inactivated Comments Full Code 11/05/2022 2:42 PM 11/07/2022 3:49 PM This c ode status was ascertained in the following way: discussion with patient . Code Status History Code Status Date Activated Date Inactivated Comments Full Code 11/05/2022 10:18 AM 11/05/2022 2:42 PM This c ode status was ascertained in the following way: discussion with patient . Full Code 04/09/2022 11:17 AM 04/11/2022 7:53 PM This code status was ascertained in the following way: discussion with patient . Full Code 04/09/2022 7:36 AM 04/09/2022 11:17 AM This code status was ascertained in the following way: discussion with patient . Care Teams Business Objects Consultant Relationship Specialty Start Date End Date Elver Mallory: [id number] [address] [place] [address] PCP - General Family Medicine 12/12/21
--- OUTSIDE RECORDS SUMMARY | 2025-01-06 15:34 | XMS_ITS | Data Portability ---
Author Organization [place] [facility] K[facility] Avalos [facility] Address [address] [place] [address] Care Team Providers Care Account Executive Trainee Name Role Phone JENIMARLILYLE Primary Care Provider [...] replacement surgeries. She is back to work [employer]. Recommended return to the office for recheck [...] 2 or 3 view 023 03/11/20 [facility], [address], [place], [address], 3 14:26:19 XR, hip, unilat eral, 2 or 3 view 023 03/11/20 23 [facility], [address], [place], [address], 3 14:26:19 Medication Orders None record ed. Patient TargetsNo targets recorded. Patient Instructions Encounter Date Encounter Id Patient Instructions Last Modified By Organization Details Last Modified Time 03/11/2023 [id number] Total of 6 view x-ray study is [...] completed Geraldo Leon [facility], 03/11/2023 13:13:55 Imaging Results None recorded. Procedure [...] SNOMED-CT Code Diagnosis ICD10 Code Diagnosis Note [id number] MD VJ You [facility] [address] [facility] [address] [place] [address] 03/11/2023 13:02:19 03/11/2023 13:39:00 Pain of left hip joint 7102618314 50457 M25.552 History of total replacement of right hip joint [id number] 53810 Z96.641 Health Concerns Section Related Observation LastModified by Organization Detai ls LastModified Time None Recorded Concern Status LastModified by Organization Details LastModified Time None Recorded Advance Directives Directive None Recorded Payers Encounter Date Sequence Insurance Name Policy Number Policy Alexandre Covered Member ID Alexandre Member ID Guarantor Name 03/11/2023 1 [facility]IC[place] PPO BLUE (MEDICARE REPLACEMENT PPO) [id number] Chuyita Tanner Billie [id number] Chuyita Wise Notes Date Note Type [...] do physical therapy. YASH OLEARY PA-C [address] [facility] [address], [place], [address], [place] [facility], 03/11/2023 13:37:12 OBGyn Episode No OBEpisode recorded.
== END 2025-01-06 14:18 | disposition home or self-care (01) ==
LOC: HO.HMCC 13:16
PROVIDERS: PCP Nurse Practitioner Family; Visit Provider Nurse Practitioner Family
DX: E78.5 Hyperlipidemia, unspecified (principal); R21 Rash and other nonspecific skin eruption; E66.9 Obesity, unspecified; Z68.39 Body mass index [BMI] 39.0-39.9, adult; R73.01 Impaired fasting glucose; I10 Essential (primary) hypertension

== ENCOUNTER → 2025-01-06 13:15 | Outpatient (BNVA) | payer MEDICARE, SELFPAY | PROVIDERS: PCP Nurse Practitioner Family; Visit Provider Nurse Practitioner Family | DX: R21 Rash and other nonspecific skin eruption (principal); R78.5 Finding of other psychotropic drug in blood; R73.01 Impaired fasting glucose; I10 Essential (primary) hypertension; E66.9 Obesity, unspecified; Z68.39 Body mass index [BMI] 39.0-39.9, adult; Z71.3 Dietary counseling and surveillance | CPT/HCPCS: 96127; 99212 ==

== ENCOUNTER 2025-04-08 09:14 | Outpatient (REF) | payer MEDICARE, SELFPAY ==
--- OUTSIDE RECORDS SUMMARY | 2025-04-08 09:56 | XMS_ITS | Clinical Summary ---
Author Organization [facility] Address [address] [place] [address] Care Team Providers Care Suede Cleaner Name Role Phone Elver Mallory Primary Care Provider [phone] Allergies No known active allergies Medications Medication [...] 5 season) 2024 02/07/2021, 01/17/2021 Influenza Vaccine (Season Ended) 2025 RSV Adult > 60+ Yrs or (1 - 1-dose 75+ series) 2030 Hepatitis B Vaccines Aged Out No long er eligible based on patient's age to complete this topic RSV Ped < 20 months Aged Out No longe r eligible based on patient's age to complete this topic Medical Devices Implanted Type Area Lighting Equipment Operator Device Identifier Shelf Expiration Date Model / Serial / Lot Insignia Hip Stem-Std Offset Implanted:Qty : 1 on 04/09/2022 by Maxime Huntley MD [place] [facility] Total Joint Right: Hip [facility] 12/16/2026 8038-6945 / / [id number] V40 Cemented Hip Stem #2 Implanted:Qty : 1 on 11/05/2022 by Maxime Huntley MD at [facility] Total Joint Left: Hip [id number] 12/20/2026 / [id number] / [id number] Tritanium Cluster Hole Shell 52mm Str-[facility] 067-82-84v-77 0473 - [id number] Implanted:Qty : 1 on 04/09/2022 by Maxime Huntley MD at [facility] Right: Hip [facility] [id number] 01/11/2027 702-04-52 E / / [id number] ++Dnu+Disc Use [id number] Hip Insrt Trident 0d Tommie 36mm Stry-Howm 570-70-66e-20 0918 - [id number] Implanted:Qty : 1 on 04/09/2022 by Maxime Huntley MD at [facility] Right: Hip [facility] [id number] 02/21/2027 623-00-36 E / / [id number] Lp Hex Screw 6.5x30mm Stry-Howm 2655-9310-775 478 - [id number] Implanted:Qty : 1 on 04/09/2022 by Maxime Huntley MD at [facility] Right: Hip [facility] [id number] 02/18/2027 6112-7896 / / [id number] Lp Hex Screw 6.5x25mm Stry-Howm 7292-9234-354 458 - [id number] Implanted:Qty : 1 on 04/09/2022 by Maxime Huntley MD at [facility] Right: Hip [facility] [id number] 01/09/2027 8971-7063 / / [id number] Hip Head Delta Biolox 36mm-2.5 Stry-Howm 3533-1-297-54 9191 - [id number] Implanted:Qty : 1 on 04/09/2022 by Maxime Huntley MD at [facility] Right: Hip [facility] 01/26/2027 6570-0-43 6 [id number] Lp Hex Screw 6.5x25mm Stry-Howm 4099-0938-792 458 - [id number] Implanted:Qty : 1 on 11/05/2022 by Maxime Huntley MD at [facility] Left: Hip [facility] [id number] 09/17/2027 8092-5278 / / [id number] Lp Hex Screw 6.5x20mm Stry-Howm 2014-6944-000 457 - [id number] Implanted:Qty : 1 on 11/05/2022 by Maxime Huntley MD at [facility] Left: Hip [facility] [id number] 08/29/2027 9413-9630 / / UTPE Tritanium Cluster Hole Shell 52mm Stry-How 667-49-73o-77 0473 - [id number] Implanted:Qty : 1 on 11/05/2022 by Maxime Huntley MD at [facility] Left: Hip [facility] [id number] 08/21/2027 702-04-52 E / / [id number] Liner Trident X3 0 Deg 36mm 5.9mm Sz E Stry-How 119-02-31n-89 3661 - [id number] Implanted:Qty : 1 on 11/05/2022 by Maxime Huntley MD at [facility] Left: Hip [facility] [id number] 10/01/2027 723-00-36 E / / [id number] Kit Prep Total Hip Bone Imp Smn-Orth 210472-203554 - [id number] Implanted:Qty : 1 on 11/05/2022 by Maxime Huntley MD at [facility] Left: Hip [employer] [facility] [id number] 04/09/2032 350045 / / [id number] Hip Head Delta Sofya 36mm 0 Stry-How 9446-5-782-62 8812 - [id number] Implanted:Qty : 1 on 11/05/2022 by Maxime Huntley MD at [facility] Left: Hip [facility] [id number] 08/06/2027 6570-0-13 [id number] Cement Bone Surg Simplex Radiopq Stry-How 6779-4-859-11 4092 - [id number] Implanted:Qty : 1 on 11/05/2022 by Maxime Huntley MD at [facility] Left: Hip [facility] [id number] 09/26/2023 6191-- 0 / / 0000 Cement Bone Surg Simplex Radiopq Roselyn-Suha 7472-3-515-11 4092 - [id number] Implanted:Qty : 1 on 11/05/2022 by Maxime Huntley MD at [facility] Left: Hip [facility] [id number] 09/26/2023 6191-1-01 0 / / 0000 Advance Directives For more information, please contact: [phone] Documents on File Type Date Recorded Patient Vocational Coordinator Expl anation Advance Directive and Living Will 04/09/2022 7:09 AM Latest Code Status on File Code Status Date Activated Date Inactivated Comments Full Code 11/05/2022 2:42 PM 11/07/2022 3:49 PM This code status was ascertained in [...] way: discussion with patient . Care Teams Suede Cleaner Relationship Specialty Start Date End Date Elver Mallory: [id number] [address] [place] [address] PCP - General Family Medicine 12/12/21
[2025-04-08 13:32] LABS: Alanine Aminotransferase 28 U/L (0-31); Albumin Level 4.6 g/dL (3.5-5.0); Alkaline Phosphatase 83 U/L (39-117); Anion Gap 14 (12-20); Aspartate Amino Transferase 28 U/L (5-31); Bilirubin Total 0.7 mg/dL (0.0-1.0); Blood Urea Nitrogen 12 mg/dL (9-16); Calcium 10.2 mg/dL (8.4-10.2); Carbon Dioxide 23 mmol/L (22-29); Chloride 110 mmol/L (96-108); Cholesterol 166 mg/dL (<200); Estimated Glomerular Filt Rate > 60; Glucose Fasting 98 mg/dL (60-99); HDL Cholesterol 41 mg/dL (>40); LDL Cholesterol Calculated 79 mg/dL (<100); Potassium 4.1 mmol/L (3.3-5.1); Sodium 143 mmol/L (135-145); Total Protein 7.5 g/dL (6.5-8.0); Triglycerides 233 mg/dL (<150)
== END 2025-04-08 09:15 | disposition home or self-care (01) ==
LOC: HO.HMGCLDS 09:14
PROVIDERS: PCP Nurse Practitioner Family; Visit Provider Nurse Practitioner Family
DX: E78.5 Hyperlipidemia, unspecified (principal); E66.9 Obesity, unspecified
CPT/HCPCS: 36415; 80053; 80061

== ENCOUNTER 2025-05-11 15:45 | Outpatient (AMB) | payer MEDICARE, SELFPAY ==
[2025-05-11 15:49] VITALS: BP 120/80; PULSE 73; TEMP 36.8; O2SAT 95; BMI 35.7
--- NOTE | 2025-05-11 15:49 | A.OFFPC_ITS ---
Vital Signs 05/11/25 15:49 Height 5 ft 6 in Weight 221 lb BMI 35.7 BP 120/80 Blood Pressure Location Rt brachial Position Sitting Pulse 73 Pulse Source Pulse Oximeter Temp 98.3 F Temp Source Oral Pulse Oximetry (%) 95 Oxygen Delivery Method Room Air Intake Visit Reasons: PE Fishing Vessel Operator Required: No Accompanied by: Self / Same As Patient Allergies No Known Allergies Allergy (Verified 05/11/25 15:51) Tobacco use date assessed: 05/11/25 Fall risk assessment: No Falls in past year Last assessed Fall Risk: 05/11/25 Dental Screening Dental Screen Date: 01/06/25 Did you have a dental visit in the last 12 months?: Yes Did you have a dental problem in the last 6 months where you did not have access to dental care?: No Was dental information given to patient?: Patient has dentist HPI PE HPI Details History of Present Illness The patient is a 69-year-old female presenting with a physical exam and preventative care management. 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 She is on a GLP-1 agonist, which has been effective in aiding weight loss and is expected to benefit her joints, particularly her right lower extrem The patient regularly sees a vascular specialist for abdominal aortic aneurysm screening, undergoing annual CAT scans. She has a good dorsalis pedis pulse on the right, and her left stump shows good circulation, motor, and sensation with no signs of ulcerations. Her blood pressure is stable, and she is due for a mammogram, which she acknowledges. Despite a family history of colon cancer, she refuses a colonoscopy but has agreed to complete a Cologuard test, although she has not yet done so (sent last fall). She is also due for a bone density screening, and lab orders have been entered for her follow-up care. Health Maintenance - Mammogram due - Colon cancer screening with stool test (Cologuard) pending - Bone density screening due Social History - Employment: Works part-time as a barte nder at a country club - Mobility: Uses a walker, manages well with movement Review of Systems - Musculoskeletal: Reports right knee cristo int pain - Cardiovascular: Denies chest pain or p alpitations - Respiratory: Denies dyspnea, lungs franklin ar Physical Exam General: Cooperative, healthy appearing, comfortable, no acute distress and well developed Orientation: Patient oriented x3 Limitations: Uses a walker, no limitations in movement Head: Normal to inspection Ears: Hearing grossly normal bilaterally Nose: Normal external nose present Face and sinus: Normal facial exam Eyes: Appearance normal, both eyes and all related structures Neck: Normal visual inspection and Yes full ROM, no carotid bruits auscultated Respiratory: Normal respiratory effort and able to speak in complete sentences. Clear to auscultation bilaterally Cardiovascular: Regular rate and rhythm. Normal S1 and S2 GI: Normal to inspection. Soft to palpation and nontender Skin: No rashes or lesions noted Neuro: Patient oriented x3 Extremities: Right knee is the only good knee, left below knee amputation with good CMS and no signs of ulcerations to the left stump. Good dorsalis pedis pulse to the right Results Plan The patient will continue on her current GLP-1 agonist therapy, which is aiding in weight loss and expected to benefit her joint health, particularly her right knee. She will maintain her annual visits to the vascular specialist for abdominal aortic aneurysm screening, with CAT scans as part of her routine care. Preventative care measures include scheduling a mammogram and encouraging completion of the Cologuard test for colon cancer screening, given her family history. A bone density screening is also due, and lab orders have been placed to facilitate her ongoing health maintenance. Discussion Notes I discussed with the patient the importance of continuing her GLP-1 agonist therapy for weight management and joint health. We reviewed her need for regular vascular specialist visits for abdominal aortic aneurysm screening. I emphasized the importance of completing her mammogram and Cologuard test, especially given her family history of colon cancer. We also discussed the necessity of a bone density screening and ensured lab orders were placed for her follow-up care. Patient Instructions - Continue taking your GLP-1 agonist as prescribed. - Schedule and complete your mammogram. - Complete the Cologuard test for colon cancer screening. - Schedule your bone density screening. - Continue annual visits to your vascula r specialist for AAA screening. [facility] Medical History Cellulitis PAD (peripheral artery disease) Fatty liver Refused pneumococcal vaccination Lumbar spondylosis Right knee pain Low back pain Phantom pain following amputation of lower limb Anxiety Occlusion of left femorotibial bypass graft AAA (abdominal aortic aneurysm) Smoker HTN (hypertension) Below-knee amputation of left lower extremity Peripheral arterial disease Surgical History History of left below knee amputation History of total left hip replacement History of total right hip replacement History of angioplasty History of angioplasty Family History Father Colon cancer Mother HTN (hypertension) Stroke Brother Colon cancer Sister Stroke Breast cancer Social History Housing: Apartment Alcohol intake: never Patient Tobacco Use Status: Former Tobacco user Years Smoked: 42 years ago e-Cigarette/Vaping Use: Never Used Second Hand Smoke Exposure: Yes 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 1. Little interest or pleasure in doing things: not at all 2. Feeling down, depressed, or hopeless: not at all 3. Trouble falling or staying asleep, or sleeping too much: not at all 4. Feeling tired or having little energy: not at all 5. Poor appetite or overeating: not at all 6. Feeling bad about yourself - or that you are a failure or have let yourself or your family down: not at all 7. Trouble concentrating on things, such as reading the newspaper or watching television: not at all 8. Moving or speaking so slowly that other people could have noticed. Or the opposite - being so fidgety or restless that you have been moving around a lot more than usual: not at all 9. Thoughts that you would be better off or of hurting yourself in some way: not at all Total score: 0 Depression Screening Interpretation: Negative Depression Screening Done: Yes 18563 - PHQ-9 Billing: Yes Source: Developed by Drs. Álvaro Louise, Rhonda Mathis, Ricky Gentile and colleagues, with an educational anil from [employer]. Thrive Questionnaire Date Thrive assessed: 01/06/25 I am a: Patient What is your living situation today?: I have a steady place to live Within the past 12 months, did the food you bought not last and you didn't have the money to get more?: Never true Within the past 12 months, did you worry whether your food would run out before you got money to buy more?: Never true Do you have trouble paying for medicines?: No Do you have trouble getting transportation to medical appointments?: I choose not to answer this question Do you have trouble paying your heating and electricity bill?: I choose not to answer this question Do you have trouble taking care of your child, family member or friend?: I choose not to answer this question Do you have trouble with day-to-day activities such as bathing, preparing meals, shopping, managing finances, etc.?: I choose not to answer this question Are you currently unemployed and looking for a job?: I choose not to answer this question Are you interested in more education?: I choose not to answer this question Please select the resources that you would like help with: Food Currently or been in a relationship where the following occur: I choose not to answer THRIVE Score: 0 KIMBERLY-7 AMB Questionnaire KIMBERLY-7 Date KIMBERLY - 7 assessed: 05/11/25 Feeling nervous, anxious, or on edge: 0 = Not at all Not being able to stop or control worryin = Not at all Worrying too much about different things: 0 = Not at all Trouble relaxin = Not at all Being so restless that it is hard to sit still: 0 = Not at all Becoming easily annoyed or irritable: 0 = Not at all Feeling afraid as if something awful might happen: 0 = Not at all Total KIMBERLY-7 score (0-4 normal; 5-9 mild; 10-14 moderate; 15-21 severe): 0 Source: Developed by Drs. Álvaro Louise, Rhonda Mathis, Ricky Gentile and colleagues, with an educational anil from [employer]. KIMBERLY-7 Assessment Billing KIMBERLY-7 Assessment Tool: KIMBERLY-7 Assessment 67021 Physical exam (Primary Care) Vital Signs: Last Vital Signs Temp 98.3 F 05/11/25 15:49 Pulse 73 05/11/25 15:49 BP 120/80 05/11/25 15:49 Pulse Ox 95 05/11/25 15:49 Oxygen Delivery Method Room Air 05/11/25 15:49 BMI result Body Mass Index 35.7 Tobacco/Smoking Status: Tobacco use Status Tobacco use date assessed 05/11/25 05/11/25 15:56 Patient Tobacco Use Status Former Tobacco user 05/11/25 15:56 e-Cigarette/Vaping Use Never Used 05/11/25 15:56 PHQ-9: PHQ-9 Score PHQ-9: Total score 0 05/11/25 15:56 Depression Screening Interpretation: Negative Thrive Assessment: Date of Thrive Assessment Date Thrive assessed 01/06/25 05/11/25 15:56 Currently or been in a relationship where the following occur: I choose not to answer Coding Level of Care Code Est Pt Prev Care >65y(84275) Diagnoses Encounter for routine adult physical exam with abnormal findings Z00. Vitamin D deficiency E55.9 Postmenopausal Z78.0 Additional Codes KIMBERLY-7 Assessment Billing - KIMBERLY-7 Assessment Tool: KIMBERLY-7 Assessment 97052 ([id number]) PHQ-9 - 80384 - PHQ-9 Billing: Yes ([id number]) Assessment & Plan Assessment & Plan (1) Encounter for routine adult physical exam with abnormal findings: Code(s): Z00. - Encounter for general adult medical examination with abnormal findings Category: Medical (2) Vitamin D deficiency: Code(s): E55.9 - Vitamin D deficiency, unspecified Category: Medical (3) Postmenopausal: Code(s): Z78.0 - Asymptomatic menopausal state Category: Medical Plan . Orders: Orders Lipid Panel Today Z00. - Encounter for general adult medical examination with abnormal findings Vitamin D 25-OH (D2 and D3) Today E55.9 - Vitamin D deficiency, unspecified XR DEXA axial skeleton Today E55.9 - Vitamin D deficiency, unspecified, Z78.0 - Asymptomatic menopausal state MM screening mammo BI Today Z12.31 - Encounter for screening mammogram for malignant neoplasm of breast Complete Blood Count Auto Diff Today Z00. - Encounter for general adult medical examination with abnormal findings Comprehensive [place]. Panel Fast Today Z00.01 - Encounter for general adult medical examination with abnormal findings TSH reflex Free T4 Today Z00.01 - Encounter for general adult medical examination with abnormal findings UA CC w/rflx Micro + Cult Today Z00.01 - Encounter for general adult medical examination with abnormal findings Medications: Refilled semaglutide for 4 weeks 2 mg (0.75 mL) subcut QWEEK 3 mL 0RF
--- OUTSIDE RECORDS SUMMARY | 2025-05-11 16:37 | XMS_ITS ---
Author Name [facility] Organization Unknown History of Medication Use Medication Directions Dispensed Refills Start Date End Date Stat us aspirin 81 mg tablet,delayed release TAKE 1 TABLET BY MOUTH EVERY DAY active pantoprazole 40 mg tablet,delayed release ac tive sulfamethoxazole 800 mg-trimethoprim 160 mg tablet TAKE 1 TABLET BY MOUTH 2 TIMES A DAY FOR 14 DAYS. active Encounters Encounter Type Encounter Reason Primary Diagnosis Location Date Ambulatory [facility] 12/03/2023 Ambulatory [facility] 10/29/2023 Ambulatory [facility] 09/24/2023 Ambulatory [facility] 03/11/2023 Ambulatory [facility] 03/11/2023 Ambulatory [facility] 03/08/2023 Ambulatory [facility] 01/24/2023
--- OUTSIDE RECORDS SUMMARY | 2025-05-11 16:37 | XMS_ITS | Clinical Summary ---
Author Organization [facility] Address [address] [place] [address] Care Team Providers Care Metal Coater Name Role Phone Elver Mallory Primary Care Provider [phone] Allergies No known active allergies Medications Medication [...] 60 11/07/2022 7:30 AM EST Temperature 36.6 C (97.8 F) 11/07/2022 7:30 AM EST Respiratory Rate 17 11/07/2022 7:30 AM EST [...] season) 2024 02/07/2021, 01/17/2021 Influenza Vaccine (#1) 2025 RSV Adult > 60+ Yrs or (1 - 1-dose 75+ series) 2030 Hepatitis B Vaccines Aged Out No long er eligible based on patient's age to complete this topic RSV Ped < 20 months Aged Out No longe r eligible based on patient's age to complete this topic Medical Devices Implanted Type Area Beauty Artist Device Identifier Shelf Expiration Date Model / Serial / Lot Insignia Hip Stem-Std Offset Implanted:Qty : 1 on 04/09/[place] [facility] [place] [facility] Total Joint Right: Hip [employer] 12/16/2026 0699-8320 / / [id number] V40 Cemented Hip Stem #2 Implanted:Qty : 1 on 11/05/2022 by Maxime Huntley MD at [facility] [place] Total Joint Left: Hip [id number] 12/20/2026 / [id number] / [id number] Tritanium Cluster Hole Shell 52mm Stry-[facility] 007-54-14s-77 0473 - [id number] Implanted:Qty : 1 on 04/09/2022 by Maxime Huntley MD at [facility] [place] Right: Hip [employer] [id number] 01/11/2027 702-04-52 E / / [id number] ++Dnu+Disc Use [id number] Hip Insrt Trident 0d Tommie 36mm Stry-Howm 378-80-16y-20 0918 - [id number] Implanted:Qty : 1 on 04/09/2022 by Maxime [place] [facility] [place] [facility] Right: Hip [employer] [id number] 02/21/2027 623-00-36 E / / [id number] Lp Hex Screw 6.5x30mm Stry-Howm 2936-7763-810 478 - [id number] Implanted:Qty : 1 on 04/09/2022 by Maxime Hunt[place] [facility] [place] [facility] Right: Hip [employer] [id number] 02/18/2027 0209-3805 / / [id number] Lp Hex Screw 6.5x25mm Stry-Howm 1277-3241-914 458 - [id number] Implanted:Qty : 1 on 04/09/2022 by Maxime Huntley [place] [facility] [place] [facility] Right: Hip [facility] [employer] [id number] 01/09/2027 9618-4326 / / [id number] Hip Head Delta Biolox 36mm-2.5 Stry-Howm 7821-0-530-54 9191 - [id number] Implanted:Qty : 1 on 04/09/2022 by Maxime Huntley [place] [facility] [place] [facility] Right: Hip [employer] 01/26/2027 6570-0-43 6 / [id number] Lp Hex Screw 6.5x25mm Stry-Howm 7530-9515-426 458 - [id number] Implanted:Qty : 1 on 11/05/2022 by Maxime Huntley [place] [facility] [place] [facility] Left: Hip [facility] [id number] 09/17/2027 8432-9986 / / [id number] Lp Hex Screw 6.5x20mm Stry-Howm 7236-0446-636 457 - [id number] Implanted:Qty : 1 on 11/05/2022 by Maxime [place] [facility] [place] Left: Hip [employer] [facility] [id number] 08/29/2027 1462-2783 / / UTPE Tritanium Cluster Hole Shell 52mm Stry-Howm 480-14-46j-[id number] 0473 - [id number] Implanted:Qty : 1 on 11/05/2022 by Maxime [place] [facility] [place] Left: Hip [facility] [id number] 08/21/2027 702-04-52 E / / [id number] Liner Trident X3 0 Deg 36mm 5.9mm Sz E Stry-How 811-22-15k-89 3661 - [id number] Implanted:Qty : 1 on 11/05/2022 by Maxime [place] [facility] [place] Left: Hip [employer] [facility] [id number] 10/01/2027 723-00-36 E / / [id number] Kit Prep Total Hip Bone Imp Smn-Orth [id number] - [id number] Implanted:Qty : 1 on 11/05/2022 by Maxime [place] [facility] [place] Left: Hip [employer] [id number] 04/09/2032 [id number] / / [id number] Hip Head Delta Sofya 36mm 0 Stry-How 6299-2-461-62 8812 - [id number] Implanted:Qty : 1 on 11/05/2022 by Maxime Hunt[place] [facility] [place] Left: Hip [facility] [id number] 08/06/2027 6570-0-13 6 / / [id number] Cement Bone Surg Simplex Radiopq Stry-Howm 7291-5-827-11 4092 - [id number] Implanted:Qty : 1 on 11/05/2022 by Maxime Hunt[place] [facility] [place] Left: Hip [employer] [facility] [id number] 09/26/2023 6191-- 0 / / 0000 Cement Bone Surg Simplex Radiopq Stry-How 1047-7-777-11 4092 - [id number] Implanted:Qty : 1 on 11/05/2022 by Maxime [place] [facility] [place] [facility] Left: Hip [facility] [id number] 09/26/2023 6191-1-01 0 / / 0000 Advance Directives For more information, please contact: [phone] Documents on File Type Date Recorded Patient Mechanical Integrity Specialist Expl anation Advance Directive and Living Will [...] way: discussion with patient . Care Teams Metal Coater Relationship Specialty Start Date End Date Elver Mallory: [phone] [address] [place] [address] PCP - General Family Medicine 12/12/21
--- OUTSIDE RECORDS SUMMARY | 2025-05-11 16:37 | XMS_ITS | Clinical Summary ---
Author Organization [address] [place] [address] [place] [phone] Phone Care Team Providers Care Adobe Flex Developer Name Role Phone Elver Mallory NP Primary Care Provider Allergies No known active allergies Medications ALPRAZolam (XANAX) 0.25 mg tablet Take 1 Tab by mouth once as needed (Preop day of angiogram) for up to 1 dose. 04/14/2020 Active gabapentin (NEURONTIN) 300 mg capsule Take 300 mg by mouth 2 times daily. Active amLODIPine (NORVASC) 5 mg tablet Take 5 mg by mouth daily. Active atorvastatin (LIPITOR) 10 mg tablet TAKE 1 TABLET BY MOUTH EVERY DAY 01/27/2024 Active sertraline (ZOLOFT) 20 mg/mL concentrated solution Take 25 mg by mouth daily. Active aspirin 81 mg EC tabletIndications :Peripheral vascular disease, unspecified ([facility] V24) TAKE 1 TABLET BY MOUTH EVERY DAY 90 tablet 3 11/02/2024 Active Active Problems Problem Noted Date Diagnosed Date AAA (abdominal aortic aneury sm) without rupture ([facility] V24) 03/13/2021 HTN (hypertension) 03/13/2021 Phantom limb pain ([facility] V24, [facility] V28) Anxiety 07/29/2020 PAD (peripheral artery disease) ([facility] V24) Repeated falls 07/29/2020 Surgical History Surgery Date Site/Laterality Comments OTHER SURGICAL HISTORY Left PROCEDURE: HISTORICAL BELOW KNEE AMP Social History Tobacco Use Types Packs/Day Years Used Date Smoking Tobacco: Former Smokeless Tobacco: Never Comments Unknown Sex and Gender Information Value Date Recorded Sex Assigned at Female 04/06/2025 3:46 PM EDT Legal Sex Female 9:28 AM EST Gender Identity Female 04/06/2025 3:46 PM EDT Sexual Orientation Not on file Obstetrics History Last Filed Vital Signs Vital Sign Reading Time Taken Comments Blood Pressure 135/84 04/06/2024 3:58 PM EDT Sit ting L Arm Pulse 77 04/06/2024 3:58 PM EDT Temperature - - Respiratory Rate - - Oxygen Saturation - - Inhaled Oxygen Concentration - - Weight 108 kg (238 lb) 04/06/2024 3:58 PM EDT Height 167.6 cm (5' 6 ) 04/06/2024 3:58 PM EDT Body Mass Index 38.41 04/06/2024 3:58 PM EDT Plan of Treatment Health Maintenance Due Date Last Done Comments Breast Cancer Screening 1955 DTaP,Tdap,and Td Vaccines (1 - Tdap) 1974 Pneumococcal Vaccine: 50+ Years (1 of 1 - PCV) 2005 Zoster Vaccines (1 of 2) 2005 RSV Immunization Adult Patients (1 - Risk 60-74 years 1-dose series) 2015 Colorectal Cancer Screening: Colonoscopy 09/30/2022 Depression Screening 09/30/2022 Falls Risk Assessment 09/30/2022 Hepatitis C Screening 09/30/2022 Medicare Annual Wellness Visit 09/30/2022 Osteoporosis Screening (Bone Density Screening) 09/30/2022 Social Influencers of Health Screening 09/30/2022 Hypertension/CHF/CAD Annual BMP Blood Test 10/26/2023 10/26/2022, 10/26/2022, 04/10/2022 COVID-19 Vaccine (3 - 2023-2 5 season) 2024 02/07/2021, 01/17/2021 Influenza Vaccine (#1) 2025 Cholesterol Screening (Lipid Panel) 01/30/2027 01/30/2022 HIB Vaccines Aged Out No longer eligi ble based on patient's age to complete this topic HPV Vaccines Aged Out No longer eligi ble based on patient's age to complete this topic Hepatitis A Vaccines Aged Out No long er eligible based on patient's age to complete this topic Hepatitis B Vaccines Aged Out No long er eligible based on patient's age to complete this topic IPV Vaccines Aged Out No longer eligi ble based on patient's age to complete this topic MMR Vaccines Aged Out No longer eligi ble based on patient's age to complete this topic Meningococcal ACWY Vaccine Aged Out N o longer eligible based on patient's age to complete this topic Meningococcal B Vaccine Aged Out No l onger eligible based on patient's age to complete this topic RSV Immunization Patients Under 20 months Aged Out No longer eligible b ased on patient's age to complete this topic Varicella Vaccines Aged Out No longer eligible based on patient's age to complete this topic Medical Devices Implanted Type Area Personal Fitness Trainer Device Identifier Shelf Expiration Date Model / Serial / Lot Insignia Hip Stem-Std Offset Implanted:Qty : 1 on 04/09/2022 by Maxime Huntley MD Joints Right: Hip [employer] 12/16/2026 3071-1284 / / [id number] V40 Cemented Hip Stem #2 Implanted:Qty : 1 on 11/05/2022 by Maxime Huntley MD Joints Left: Hip [id number] 12/20/2026 / [id number] / [id number] Tritanium Cluster Hole Shell 52mm Stry-Howm [id number] Implanted:Qty : 1 on 04/09/2022 by Maxime Huntley MD Right: Hip [employer] [id number] 01/11/2027 702-04-52 E / / [id number] ++Dnu+Disc Use [id number] Hip Insrt Trident 0d Tommie 36mm Stry-Howm [id number] 0918 Implanted:Qty : 1 on 04/09/2022 by Maxime Huntley MD Right: Hip [employer] [id number] 02/21/2027 623-00-36 E / / [id number] Lp Hex Screw 6.5x30mm Stry-Howm [id number] Implanted:Qty : 1 on 04/09/2022 by Maxime Huntley MD Right: Hip [employer] [id number] 02/18/2027 9023-6945 / / [id number] Lp Hex Screw 6.5x25mm Stry-Howm [id number] 458 Implanted:Qty : 1 on 04/09/2022 by Maxime Huntley MD Right: Hip [employer] [id number] 01/09/2027 5266-9434 / / [id number] Hip Head Delta Biolox 36mm-2.5 Stry-Howm [id number] 9191 Implanted:Qty : 1 on 04/09/2022 by Maxime Huntley MD Right: Hip [employer] 01/26/2027 6570-0-43 6 / / [id number] Lp Hex Screw 6.5x25mm Stry-Howm [id number] 458 Implanted:Qty : 1 on 11/05/2022 by Maxime Huntley MD Left: Hip [employer] [id number] 09/17/20275885-3255 / / [id number] Lp Hex Screw 6.5x20mm Stry-Howm [id number] 457 Implanted:Qty : 1 on 11/05/2022 by Maxime Huntley MD Left: Hip [employer] [id number] 08/29/20273030-9244 / / [id number] Tritanium Cluster Hole Shell 52mm Stry-Howm [id number] [id number] Implanted:Qty : 1 on 11/05/2022 by Maxime Huntley MD Left: Hip [employer] [id number] 08/21/2027 702-04-52 E / / [id number] Liner Trident X3 0 Deg 36mm 5.9mm Sz E Stry-Howm [id number] 3661 Implanted:Qty : 1 on 11/05/2022 by Maxime Huntley MD Left: Hip [employer] [id number] 10/01/2027 723-00-36 E / / [id number] Kit Prep Total Hip Bone Imp [facility] [id number] Implanted:Qty : 1 on 11/05/2022 by Maxime Huntley MD Left: Hip [employer] [id number] 04/09/2032 [id number] / / [id number] Hip Head Delta Sofya 36mm 0 Stry-Howm [id number] [id number] Implanted:Qty : 1 on 11/05/2022 by Maxime Huntley MD Left: Hip [employer] [id number] 08/06/2027 6570-0-13 [id number] Cement Bone Surg Simplex Radiopq Stry-Howm [id number] 4092 Implanted:Qty : 1 on 11/05/2022 by Maxime Huntley MD Left: Hip [employer] [id number] 09/26/20236190-10-28 0 / / 0000 Cement Bone Surg Simplex Radiopq Stry-Howm 1604-1-444-11 4092 Implanted:Qty : 1 on 11/05/2022 by Maxime Huntley MD Left: Hip [employer] [id number] 09/26/2023 6191-- 0 / / 0000 Procedures Procedure Name Priority Date/Time Associated Diagnosis Comments ANNUAL BMP BLOOD TEST Routine 10/26/2022 LIPID PANEL Routine 01/30/2022 from Last 3 Months or Most Recently Relevant to Health Maintenance Results * Annual BMP Blood Test (10/26/2022) Pathologist [facility] Annual BMP Blood Test Abstracted Historical Provider HEALTH MAINTENANCE Final Result * (ABNORMAL) Lipid panel (01/30/2022) [facility] LDL/HDL Ratio 6(A) 0 - 4 Triglycerides 324(A) 0 - 150 mg/dL Cholesterol 269(A) 0 - 200 mg/dL HDL 47 >=40 mg/dL LDL Cholesterol 158(A) 0 - 100 mg/dL Blood Venous blood specimen / Unknown Historical Provider LAB BLOOD ORDERABLES Estela l Result from Last 3 Months or Most Recently Relevant to Health Maintenance Insurance [facility] MEDICARE ADVANTAGE GENERIC on file BLUE [place]OSS - [place] MEDICARE ADVANTAGE Advance Directives Documents on File Type Date Recorded Patient Clinical Dietician Expl anation Health Care Decision (hx) 07/05/2020 AD QUINTEROS DIRECTIVE Health Care Decision (hx) 07/05/2020 AD QUINTEROS DIRECTIVE Health Care Decision (hx) 07/05/2020 AD QUINTEROS DIRECTIVE Health Care Decision (hx) 07/05/2020 AD QUINTEROS DIRECTIVE Health Care Decision (hx) 07/05/2020 AD QUINTEROS DIRECTIVE Health Care Decision (hx) 07/05/2020 AD QUINTEROS DIRECTIVE Health Care Decision (hx) 07/05/2020 AD QUINTEROS DIRECTIVE Health Care Decision (hx) 07/05/2020 AD QUINTEROS DIRECTIVE Health Care Decision (hx) 07/05/2020 AD QUINTEROS DIRECTIVE Care Teams Adobe Flex Developer Relationship Specialty Start Date End Date Elver Mallory NP [address], [place] PCP - General Family Medicine 12/12/21
--- OUTSIDE RECORDS SUMMARY | 2025-05-11 16:37 | XMS_ITS | Data Portability ---
Author Organization [place] [facility] [address] [place] Address [address] [place] [address] Care Team Providers Care Beater Dumper Name Role Phone LYLE CASILLAS Primary Care Provider Assessment Encounter Date Assessment Date Assessment LastModified by Organization Details LastModified Time 03/11/2023 03/11/2023 67-year-old female is approximately 1 year status post right-sided total hip arthroplasty in approximately 6 months status post left-sided total hip arthroplasty. She is pleased with her progress and mid range and long-term outcome from her replacement surgeries. 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 Recommended return to the office for recheck in 6 months for her left hip. ry Not available 03/11/2023 13:36:51 Plan of Treatment Reminders Order Date Submit Date Provider Last Modified By Organization Details Last Modified Time Details Appointments None record ed. Lab None record ed. Referral None record ed. Procedures None record ed. Surgeries None record ed. Imaging XR, hip, unilat eral, 2 or 3 view 023 03/11/20 23 [email or web address], [address], [place], [address], 3 14:26:19 XR, hip, unilat eral, 2 or 3 view 023 03/11/20 23 [email or web address], [address], [place], [address], 3 14:26:19 Medication Orders None record ed. Patient TargetsNo targets recorded. Patient InstructionsNo instructions recorded. Reason for Referral None Reported. Procedures Surgical History Date Name Laterality Status Provider Name and Address Organization Details Recorded Time Hip Surgery completed Geraldo Leon [facility], [facility] 03/11/2023 13:13:55 Imaging Results None recorded. Procedure [...] SNOMED-CT Code Diagnosis ICD10 Code Diagnosis Note [id number] ZENAIDA BERRY [facility] [address] [facility] [address] [place] [address] 03/11/2023 13:02:19 03/11/2023 13:39:00 Pain of left hip joint 5883677081 80791 M25.552 History of total replacement of right hip joint [id number] 72987 Z96.641 Health Concerns Section Related Observation LastModified by Organization Detai ls LastModified Time None Recorded Concern Status LastModified by Organization Details LastModified Time None Recorded Advance Directives Directive None Recorded Payers None recorded. Notes Date Note Type Note Provider Name [...] to do physical therapy. YASH OLEARY PA-C [address] [place] [address], [place], [phone], [place] [facility], 03/11/2023 13:37:12 OBGyn Episode No OBEpisode recorded.
== END 2025-05-11 16:34 | disposition home or self-care (01) ==
LOC: HO.HMCC 15:46
PROVIDERS: PCP Nurse Practitioner Family; Visit Provider Nurse Practitioner Family
DX: Z00.01 Encounter for general adult medical examination with abnormal findings (principal); E55.9 Vitamin D deficiency, unspecified; Z78.0 Asymptomatic menopausal state

== ENCOUNTER → 2025-05-11 15:45 | Outpatient (BNVA) | payer MEDICARE, SELFPAY | PROVIDERS: PCP Nurse Practitioner Family; Visit Provider Nurse Practitioner Family | DX: Z00.01 Encounter for general adult medical examination with abnormal findings (principal); E55.9 Vitamin D deficiency, unspecified; Z78.0 Asymptomatic menopausal state; Z89.512 Acquired absence of left leg below knee | CPT/HCPCS: 96127; 99397 ==

== ENCOUNTER 2025-09-27 13:11 | Outpatient (AMB) | payer MEDICARE, SELFPAY ==
[2025-09-27 13:20] VITALS: BP 110/74; PULSE 91; O2SAT 98; BMI 30.5
--- NOTE | 2025-09-27 13:20 | A.OFFPC_ITS ---
Vital Signs 09/27/25 13:20 Height 5 ft 6 in Weight 189 lb BMI 30.5 BP 110/74 Blood Pressure Location Lt brachial Position Sitting Pulse 91 Pulse Source Pulse Oximeter Pulse Oximetry (%) 98 Intake Visit Reasons: 4m f/u Allergies No Known Allergies Allergy (Verified 09/27/25 13:20) Medication List - Last Reconciled 09/27/25 by AYLA Gaston- acetaminophen (Tylenol) 325 mg PO QID PRN alprazolam 0.25 mg PO BID PRN 30 days amlodipine 10 mg PO DAILY aspirin 81 mg PO DAILY atorvastatin 20 mg PO DAILY blood pressure monitor (Blood Pressure Kit) use daily for htn fenofibrate 54 mg PO DAILY gabapentin 1,200 mg PO 1 cap in the am, 2 caps at 2pm, 2 caps at night; 3 reserve 24 days sertraline 50 mg PO DAILY Tobacco use date assessed: 05/11/25 Fall risk assessment: No Falls in past year Last assessed Fall Risk: 09/27/25 Dental Screening Dental Screen Date: 01/06/25 HPI 4m f/u HPI Details Chief Complaint The patient presents for a follow-up visit for dyslipidemia and hypertension. History of Present Illness The patient is a 70 year old individual presenting for a follow-up visit for dyslipidemia and hypertension. The patient is currently prescribed atorvastatin 20 mg and fenofibrate. The patient's blood pressure is reported to be stable. Social History Health Maintenance - The patient plans to have lab work don e in the near future to monitor chronic conditions. Review of Systems - Cardiovascular: Denies chest pain. - Respiratory: Denies shortness of breat h. - Eyes: Denies blurred vision. Physical Exam General: Cooperative, healthy appearing, comfortable, no acute distress and well developed Orientation: Patient oriented x3 Limitations: No limitations Head: Normal to inspection Ears: Hearing grossly normal bilaterally Nose: Normal external nose present Face and sinus: Normal facial exam Eyes: Appearance normal, both eyes and all related structures Neck: Normal visual inspection and Yes full ROM Respiratory: Normal respiratory effort and able to speak in complete sentences. Clear to auscultation bilaterally Cardiovascular: Regular rate and rhythm. Normal S1 and S2 GI: Normal to inspection. Soft to palpation and nontender Skin: No rashes or lesions noted Neuro: Patient oriented x3 Extremities: Normal to inspection Results Plan 1. Hypertension The patient's blood pressure is stable. All medications will be refilled. 2. Dyslipidemia The patient is currently on atorvastatin 20 mg and fenofibrate. Medication refills will be provided. The patient will obtain lab work in the near future for monitoring. Discussion Notes I saw the patient for a follow-up of dyslipidemia and hypertension. The patient's blood pressure is stable, and the patient is doing well on the current regimen of atorvastatin and fenofibrate. I will refill these medications and the patient will have labs drawn in the near future. The patient will follow up via the patient portal or visit an urgent care center if any changes in physical condition occur. Patient Instructions - We will send refills for your medicati ons to your pharmacy. - Please get your lab work done in the n ear future. - If you experience any change in your c ondition, please contact us through the patient portal or go to an urgent care center. [facility] Medical History Cellulitis PAD (peripheral artery disease) Fatty liver Refused pneumococcal vaccination Lumbar spondylosis Right knee pain Low back pain Phantom pain following amputation of lower limb Anxiety Occlusion of left femorotibial bypass graft AAA (abdominal aortic aneurysm) Smoker HTN (hypertension) Below-knee amputation of left lower extremity Peripheral arterial disease Surgical History History of left below knee amputation History of total left hip replacement History of total right hip replacement History of angioplasty History of angioplasty Family History Father Colon cancer Mother HTN (hypertension) Stroke Brother Colon cancer Sister Stroke Breast cancer Social History Housing: Apartment Alcohol intake: never Patient Tobacco Use Status: Former Tobacco user Years Smoked: 42 years ago e-Cigarette/Vaping Use: Never Used Second Hand Smoke Exposure: Yes 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 disabili Cognitive needs: No Hearing needs: No Vision needs: No Questionnaire Thrive Questionnaire Date Thrive assessed: 01/06/25 I am a: Patient What is your living situation today?: I have a steady place to live Within the past 12 months, did the food you bought not last and you didn't have the money to get more?: Never true Within the past 12 months, did you worry whether your food would run out before you got money to buy more?: Never true Do you have trouble paying for medicines?: No Do you have trouble getting transportation to medical appointments?: I choose not to answer this question Do you have trouble paying your heating and electricity bill?: I choose not to answer this question Do you have trouble taking care of your child, family member or friend?: I choose not to answer this question Do you have trouble with day-to-day activities such as bathing, preparing meals, shopping, managing finances, etc.?: I choose not to answer this question Are you currently unemployed and looking for a job?: I choose not to answer this question Are you interested in more education?: I choose not to answer this question Please select the resources that you would like help with: Food Currently or been in a relationship where the following occur: I choose not to answer THRIVE Score: 0 KIMBERLY-7 AMB Questionnaire KIMBERLY-7 Date KIMBERLY - 7 assessed: 05/11/25 Source: Developed by Drs. Álvaro Louise, Rhonda Mathis, Ricky Gentile and colleagues, with an educational anil from [email or web address]. Physical exam (Primary Care) Vital Signs: Last Vital Signs Pulse 91 09/27/25 13:20 BP 110/74 09/27/25 13:20 Pulse Ox 98 09/27/25 13:20 BMI result Body Mass Index 30.5 Tobacco/Smoking Status: Tobacco use Status Tobacco use date assessed 05/11/25 09/27/25 13:21 Patient Tobacco Use Status Former Tobacco user 09/27/25 13:21 e-Cigarette/Vaping Use Never Used 09/27/25 13:21 Thrive Assessment: Date of Thrive Assessment Date Thrive assessed 01/06/25 09/27/25 13:21 Currently or been in a relationship where the following occur: I choose not to answer Coding Level of Care Code Est Pt Level 3 (01615) Diagnoses HTN (hypertension) I10 Dyslipidemia E78.5 Assessment & Plan Assessment & Plan (1) HTN (hypertension): Comment: bp checks at home Code(s): I10 - Essential (primary) hypertension Category: Medical (2) Dyslipidemia: Code(s): E78.5 - Hyperlipidemia, unspecified Category: Medical Plan . Orders: Referrals Cologuard Test Z12.11 - Encounter for screening for malignant neoplasm of colon, Z12.12 - Encounter for screening for malignant neoplasm of rectum Medications: New aspirin 81 mg PO DAILY 90 tabs 3RF Refilled atorvastatin 20 mg PO DAILY 90 tabs 1RF gabapentin 1,200 mg PO 1 cap in the am, 2 caps at 2pm, 2 caps at night; 3 reserve 210 caps 1RF 24 days sertraline 50 mg PO DAILY 90 tabs 1RF amlodipine 10 mg PO DAILY 90 tabs 1RF alprazolam 0.25 mg PO BID PRN 60 tabs 0RF anxiety 30 days fenofibrate 54 mg PO DAILY 90 tabs 1RF Discontinued semaglutide for 4 weeks Discontinued Reason: Doctor's Order 2 mg (0.75 mL) subcut QWEEK 3 mL 5RF
--- OUTSIDE RECORDS SUMMARY | 2025-09-27 16:52 | XMS_ITS | Clinical Summary ---
Author Organization [facility] Address [address] [place] [address] Care Team Providers Care Network Contractor Name Role Phone Elver Mallory Primary Care Provider [phone] Allergies No known active allergies Medications Medication [...] - PCV) 2020 COVID-19 Vaccine (3 - 2024-2 6 season) 2025 02/07/2021, 01/17/2021 Influenza Vaccine (#1) 2025 RSV Adult > 60+ Yrs or (1 - 1-dose 75+ series) 2030 Hepatitis B Vaccines Aged Out No long er eligible based on patient's age to complete this topic RSV Ped < 20 months Aged Out No longe r eligible based on patient's age to complete this topic Medical Devices Implanted Type Area Rfid Systems Architect Device Identifier Shelf Expiration Date Model / Serial / Lot Insignia Hip Stem-Std Offset Implanted:Qty : 1 on 04/09/2022 by Maxime Huntley MD at [facility] Total Joint Right: Hip [employer] 12/16/2026 3811-7088 / / [id number] [id number] Cemented Hip Stem #2 Implanted:Qty : 1 on 11/05/2022 by Maxime Huntley MD at [facility] Total Joint Left: Hip [id number] 12/20/2026 / [id number] / [id number] Tritanium Cluster Hole Shell 52mm Stry-[facility] 823-24-34n-77 0473 - [id number] Implanted:Qty : 1 on 04/09/2022 by Maxime Huntley MD at [facility] Right: Hip [facility] [id number] 01/11/2027 702-04-52 E / / [id number] ++Dnu+Disc Use [id number] Hip Insrt Trident 0d Tommie 36mm Stry-Howm 665-62-65h-20 0918 - [id number] Implanted:Qty : 1 on 04/09/2022 by Maxime Huntley MD at [facility] Right: Hip [employer] [facility] [id number] 02/21/2027 623-00-36 E / / [id number] Lp Hex Screw 6.5x30mm Stry-Howm 4659-2409-834 478 - [id number] Implanted:Qty : 1 on 04/09/2022 by Maxime Huntley MD at [facility] Right: Hip [facility] [id number] 02/18/2027 4046-3580 / / [id number] Lp Hex Screw 6.5x25mm Stry-Howm 5379-2514-449 458 - [id number] Implanted:Qty : 1 on 04/09/2022 by Maxime Huntley MD at [facility] Right: Hip [facility] [id number] 01/09/2027 6553-2441 / / [id number] Hip Head Delta Biolox 36mm-2.5 Stry-Howm 9017-5-738-54 9191 - [id number] Implanted:Qty : 1 on 04/09/2022 by Maxime Huntley MD at [facility] Right: Hip [employer] [facility] 01/26/2027 6570-0-43 6 / [id number] Lp Hex Screw 6.5x25mm Stry-Howm 1701-1373-447 458 - [id number] Implanted:Qty : 1 on 11/05/2022 by Maxime Huntley MD at [facility] Left: Hip [facility] [facility] [id number] 09/17/2027 9310-0552 / / [id number] Lp Hex Screw 6.5x20mm Stry-Howm 2117-8062-836 457 - [id number] Implanted:Qty : 1 on 11/05/2022 by Maxime Huntley MD at [facility] and [facility] Left: Hip [facility] [id number] 08/29/2027 2488-6237 / / UTPE Tritanium Cluster Hole Shell 52mm Stry-Howm 388-93-75o-77 0473 - [id number] Implanted:Qty : 1 on 11/05/2022 by Maxiem Huntley MD at [facility] Left: Hip [facility] [id number] 08/21/2027 702-04-52 E / / [id number] Liner Trident X3 0 Deg 36mm 5.9mm Sz E Stry-How 991-91-41w-89 3661 - [id number] Implanted:Qty : 1 on 11/05/2022 by Maxiem Huntley MD at [facility] and [facility] Left: Hip [facility] [id number] 10/01/2027 723-00-36 E / / [id number] Kit Prep Total Hip Bone Imp [facility] 306053-258668 - [id number] Implanted:Qty : 1 on 11/05/2022 by Maxime Huntley MD at [facility] Left: Hip [employer] [facility] [id number] 04/09/2032 [id number] / / [id number] Hip Head Delta Sofya 36mm 0 Stry-How 7341-7-158-62 8812 - [id number] Implanted:Qty : 1 on 11/05/2022 by Maxime Huntley MD at [facility] and [facility] Left: Hip [facility] [id number] 08/06/2027 6570-0-13 6 / / [id number] Cement Bone Surg Simplex Radiopq Stry-Howm 5422-4-634-11 4092 - [id number] Implanted:Qty : 1 on 11/05/2022 by Maxime Huntley MD at [facility] and [facility] Left: Hip [facility] [id number] 09/26/2023 6191-- 0 / / 0000 Cement Bone Surg Simplex Radiopq Stry-How 3863-4-865-11 4092 - [id number] Implanted:Qty : 1 on 11/05/2022 by Maxime Huntley MD at [facility] Left: Hip [facility] [id number] 09/26/2023 6191-1-01 0 / / 0000 Advance Directives For more information, please contact: [phone] Documents on File Type Date Recorded Patient Medical Anthropology Director Expl anation Advance Directive and Living Will [...] way: discussion with patient . Care Teams Network Contractor Relationship Specialty Start Date End Date Elver Mallory: [phone] [address] [place] [address] PCP - General Family Medicine 12/12/21
--- OUTSIDE RECORDS SUMMARY | 2025-09-27 16:52 | XMS_ITS | Clinical Summary ---
Author Organization [address] [place] [address] [place] [phone] Phone Care Team Providers Care Physical Chemistry Professor Name Role Phone Elver Mallory NP Primary [...] mg EC tabletIndications :Peripheral vascular disease, unspecified ([facility] V24) TAKE 1 TABLET BY MOUTH EVERY DAY 90 tablet 3 11/02/2024 Active Active Problems Problem Noted Date Diagnosed Date AAA (abdominal aortic aneury sm) without rupture ([facility] V24) 03/13/2021 HTN (hypertension) 03/13/2021 Phantom limb pain ([facility] V24, [facility] V28) Anxiety 07/29/2020 PAD (peripheral artery disease) ([facility] V24) Repeated falls 07/29/2020 Surgical History Surgery [...] Last Done Comments Breast Cancer Screening 1955 Colorectal Cancer Screening: Colonoscopy 1955 DTaP,Tdap,and Td Vaccines (1 - Tdap) 1974 Pneumococcal Vaccine: 50+ Years (1 of 1 - PCV) 2005 RSV Immunization Adult Patients (1 - Risk 50-74 years 1-dose series) 2005 Zoster Vaccines (1 of 2) 2005 Falls Risk Assessment 09/30/2022 Hepatitis C Screening 09/30/2022 Medicare Annual Wellness Visit 09/30/2022 Osteoporosis Screening (Bone Density Screening) 09/30/2022 Social Influencers of Health Screening 09/30/2022 Hypertension/CHF/CAD Annual BMP Blood Test 10/26/2023 10/26/2022, 10/26/2022, 04/10/2022 Depression Screening 10/28/2024 COVID-19 Vaccine (3 - 2024-2 6 season) 2025 02/07/2021, 01/17/2021 Influenza Vaccine (#1) 2025 Cholesterol [...] this topic Medical Devices Implanted Type Area Director Pharmacology Device Identifier Shelf Expiration Date Model / Serial / Lot Insignia Hip Stem-Std Offset Implanted:Qty : 1 on 04/09/2022 by Maxime Huntley MD Joints Right: Hip [facility] 12/16/2026 9844-5383 / / [id number] V40 Cemented Hip Stem #2 Implanted:Qty : 1 on 11/05/2022 by Maxime Huntley MD Joints Left: Hip [id number] 12/20/2026 / [id number] / [id number] Tritanium Cluster Hole Shell 52mm Stry-Howm 069-66-59b-77 0473 Implanted:Qty : 1 on 04/09/2022 by Maxime Huntley MD Right: Hip [facility] [id number] 01/11/2027 702-04-52 E / / [id number] ++Dnu+Disc Use [id number] Hip Insrt Trident 0d Tommie 36mm Stry-Howm 622-53-98j-20 0918 Implanted:Qty : 1 on 04/09/2022 by Maxime Huntley MD Right: Hip [facility] [id number] 02/21/2027 623-00-36 E / / [id number] Lp Hex Screw 6.5x30mm Stry-Howm 6919-4011-265 478 Implanted:Qty : 1 on 04/09/2022 by Maxime Huntley MD Right: Hip [employer] [facility] [id number] 02/18/2027 4525-1458 / / [id number] Lp Hex Screw 6.5x25mm Stry-Howm 9111-0946-919 458 Implanted:Qty : 1 on 04/09/2022 by Maxime Huntley MD Right: Hip [facility] [id number] 01/09/2027 8162-5910 / / [id number] Hip Head Delta Biolox 36mm-2.5 Stry-Howm 7897-7-711-54 9191 Implanted:Qty : 1 on 04/09/2022 by Maxime Huntley MD Right: Hip [facility] 01/26/2027 6570-0-43 6 / / [id number] Lp Hex Screw 6.5x25mm Stry-Howm 7955-0370-637 458 Implanted:Qty : 1 on 11/05/2022 by Maxime Huntley MD Left: Hip [facility] [id number] 09/17/20270403-8045 / / [id number] Lp Hex Screw 6.5x20mm Stry-Howm 0713-5772-010 457 Implanted:Qty : 1 on 11/05/2022 by Maxime Huntley MD Left: Hip [employer] [id number] 08/29/20274683-4960 / / UTPE Tritanium Cluster Hole Shell 52mm Stry-Howm 716-08-25x-77 0473 Implanted:Qty : 1 on 11/05/2022 by Maxime Huntley MD Left: Hip [employer] [facility] [id number] 08/21/2027 702-04-52 E / / [id number] Liner Trident X3 0 Deg 36mm 5.9mm Sz E Stry-Howm 236-87-01v-89 3661 Implanted:Qty : 1 on 11/05/2022 by Maxime Huntley MD Left: Hip [employer] [id number] 10/01/2027 723-00-36 E / / [id number] Kit Prep Total Hip Bone Imp [facility] [id number] Implanted:Qty : 1 on 11/05/2022 by Maxime Huntley MD Left: Hip [employer] [facility] [id number] 04/09/2032 685625 / / [id number] Hip Head Delta Sofya 36mm 0 Stry-Howm 7579-1-539-62 8812 Implanted:Qty : 1 on 11/05/2022 by Maxime Huntley MD Left: Hip [facility] [id number] 08/06/2027 6570-0-13 [id number] Cement Bone Surg Simplex Radiopq Stry-Howm 6461-3-096-11 4092 Implanted:Qty : 1 on 11/05/2022 by Maxime Huntley MD Left: Hip [facility] [id number] 09/26/20236190-10-28 0 / / 0000 Cement Bone Surg Simplex Radiopq Stry-Howm 0056-3-852-11 4092 Implanted:Qty : 1 on 11/05/2022 by Maxime Huntley MD Left: Hip [facility] [id number] 09/26/2023 6191-- 0 / / 0000 Procedures Procedure Name Priority Date/Time Associated Diagnosis Comments ANNUAL BMP BLOOD TEST Routine 10/26/2022 LIPID PANEL Routine 01/30/2022 from Last 3 Months or Most Recently Relevant to Health Maintenance Results * Annual BMP Blood Test (10/26/2022) Pathologist [facility] Annual BMP Blood Test Abstracted Historical Provider HEALTH MAINTENANCE Final Result * (ABNORMAL) Lipid panel (01/30/2022) [facility] LDL/HDL Ratio 6(A) 0 - 4 Triglycerides 324(A) 0 - 150 mg/dL Cholesterol 269(A) 0 - 200 mg/dL HDL 47 >=40 mg/dL LDL Cholesterol 158(A) 0 - 100 mg/dL Blood Venous blood specimen / Unknown Historical Provider LAB BLOOD ORDERABLES Estela l Result from Last 3 Months or Most Recently Relevant to Health Maintenance Insurance [facility] MEDICARE ADVANTAGE GENERIC on file [place] MEDIC[place] Advance Directives Documents on File Type Date Recorded 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
--- OUTSIDE RECORDS SUMMARY | 2025-09-27 16:52 | XMS_ITS | Data Portability ---
Author Organization [place] [facility] Address [address] [place] [address] Care Team Providers Care Guest History Clerk Name Role Phone LYLE CASILLAS Primary Care Provider Assessment Encounter Date Assessment Date Assessment LastModified by Organization Details LastModified Time 03/11/2023 03/11/2023 67-year-old ja fonseca is approximately 1 year status post right-sided total hip arthroplasty in approximately 6 months status post left-sided total hip arthroplasty. She is pleased with her progress and mid range and long-term outcome from her replacement surgeries. 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 Recommended return to the office for recheck in 6 months for her left hip. [email or web address] Not available 03/11/2023 13:36:51 06/24/2025 06/24/2025 69-year-old ja fonseca with left hip pain x 1 month status post left-sided total hip arthroplasty in early 2021. There is no clinical or radiographic evidence of failure of her prosthetic. Recommendations are for sed rate and C-reactive protein. If they are abnormal she will require arthrocentesis of the left hip. If they are within normal limits she could be trialed on anti-inflammatory. Her pain may be simply the results of a change in the fit of her prosthetic in combination with an increase in her recent workload. She will present to her certified master safe technician for a fit adjustment to her BKA lower extremity prosthetic. She will discuss a reduction in her workdays and work hours with her employer. Follow-up with me in 3 weeks. This patient was seen and evaluated by Yash Oleary MS, PAMartineC in indirect conjunction with documenting/superv ising provider Maxime Huntley MD. He agrees with history, physical examination, tests/diagnostic imaging, and treatment plan. This document was generated using voice recognition software. As a result, there may be unintended spelling, grammatical and/or textual errors. [email or web address] Not available 06/24/2025 11:29:08 Plan of Treatment Reminders Order Date Submit Date Provider Last Modified By Organization Details Last Modified Time Details Appointments None record ed. Lab None record ed. Referral None record ed. Procedures None record ed. Surgeries None record ed. Imaging XR, hip, unilat eral, 2 or 3 view 025 06/24/20 25 [email or web address], [address], [place], [address], 5 11:27:54 XR, hip, unilat eral, 2 or 3 view 023 03/11/20 23 [email or web address], [address], [place], [address], 3 14:26:19 XR, hip, unilat eral, 2 or 3 view 023 03/11/20 23 [email or web address], [address], [place], [address], 3 14:26:19 Medication Orders None record ed. Patient TargetsNo targets recorded. Patient InstructionsNo instructions recorded. Reason for Referral None Reported. Problems Name Problem SNOMED Code Status Onset Date Resolution Date Notes Provider Name and Address Organization Details Recorded Time Deep venous thrombosi s 134518968 Active 1986 Deep vein thrombosis - Overview: L-Leg DVT Not Available [facility] 5 23:21:57 Body mass index 30+ - obesity 959624926 Active 2021 Obesity (BMI 30-39.9) Not Available [facility] 5 23:21:56 Dyspnea on exertion 39306727 Active 2021 Dyspnea on exertion Not Available [facility] 5 23:21:57 Essential hypertens ion 87376730 Active 2021 Essential hypertensi on Not Available [facility] 5 23:21:57 Periphera l arterial disease 835374752 Active 2021 PAD (periphera l artery disease) Not Available [facility] 5 23:21:57 Abdominal aortic aneurysm 990827738 Active 2021 AAA (abdominal aortic aneurysm) Not Available [facility] 5 23:21:57 History of repair of hip joint 443581132 Active 2024 YASH OLEARY PA-C [address] [facility],[address], [place], [address] , [place] [facility] 5 11:27:14 Problem Notes None recorded. Procedures Surgical History Date Name Laterality Status Provider Name and Address Organization Details Recorded Time Hip Surgery completed Geraldo Leon [place] [facility] 03/11/2023 13:13:55 Imaging Results None recorded. Procedure Notes None recorded. Medical Equipment None Reported. Medications Name Sig Start Date Stop Date Status Note LastModified by Organization Details LastModified Time atorvastati n 20 mg tablet TAKE 1 TABLET BY MOUTH EVERY DAY active Not Available Not Available No t Available cetirizine 10 mg tablet TAKE 1 TABLET ONCE DAILY IN THE MORNING NEEDED FOR ITCH active Not Available Not Available No t Available atorvastati n 10 mg tablet TAKE 1 TABLET BY MOUTH EVERY DAY active Not Available Not Available No t Available ondansetron HCl 8 mg tablet Take 1 tablet (8 mg total) by mouth every 8 (eight) hours as needed for nausea. 10/12 completed Not Available Not Available Not Available meloxicam 15 mg tablet Take 1 tablet (15 mg total) by mouth daily for 15 days. 04/27 completed Not Available Not Available Not Available sennosides 8.6 mg-docusate sodium 50 mg tablet Take 1 tablet by mouth 2 (two) times a day. 2022 active Not Available Not Available Not Avai lable amlodipine 5 mg tablet TAKE 1 TABLET BY MOUTH EVERY DAY active Not Available Not Available No t Available sulfamethox azole 800 mg-trimetho prim 160 mg tablet Take 1 tablet (160 mg of trimethop rim total) by mouth 2 (two) times a day for 14 days. 12/15 completed Not Available Not Available Not Available aspirin 81 mg tablet,bethanie yed release TAKE 1 TABLET BY MOUTH EVERY DAY active Not Available Not Available No t Available acetaminoph en 500 mg tablet Take 2 tablets (1,000 mg total) by mouth every 8 (eight) hours. 11/07 completed Not Available Not Available Not Available triamcinolo ne acetonide 0.1 % topical cream APPLY TOPICALLY 2 TIMES A DAY active Not Available Not Available No t Available alprazolam 0.25 mg tablet Take 0.25 mg by mouth 3 (three) times a day as needed. 10/12 completed Not Available Not Available Not Available methocarbam ol 750 mg tablet Take 1 tablet (750 mg total) by mouth every 6 (six) hours as needed (spasm). 2022 active Not Available Not Available Not Avai lable amlodipine 10 mg tablet TAKE 1 TABLET BY MOUTH EVERY DAY active Not Available Not Available No t Available pantoprazol e 40 mg tablet,bethanie yed release Take 1 tablet (40 mg total) by mouth daily. 10/12 completed Not Available Not Available Not Available gabapentin 300 mg capsule Take 1 capsule (300 mg total) by mouth every night at bedtime as needed. 1-2 tablets active Not Available Not Available No t Available hydroxyzine HCl 10 mg tablet TAKE 1 TABLET BY MOUTH ONCE DAILY AT BEDTIME NEEDED FOR ITCH. active Not Available Not Available No t Available ondansetron 4 mg disintegrat ing tablet Take 1 tablet (4 mg total) by mouth every 8 (eight) hours as needed for nausea. 2022 active Not Available Not Available Not Avai lable sertraline 50 mg tablet TAKE 1 TABLET BY MOUTH EVERY DAY active Not Available Not Available No t Available amoxicillin 875 mg-potassiu m clavulanate 125 mg tablet TAKE 1 TABLET BY MOUTH TWICE A DAY active Not Available Not Available No t Available oxycodone 5 mg tablet Take 1-2 tablets (5-10 mg total) by mouth every 4 (four) hours as needed for pain. 2022 active Not Available Not Available Not Avai lable amlodipine 2.5 mg-atorvast atin 10 mg tablet Take 1 tablet by mouth daily. 03/20 completed Not Available Not Available Not Available fenofibrate 54 mg tablet TAKE 1 TABLET BY MOUTH EVERY DAY active Not Available Not Available No t Available naproxen sodium 220 mg capsule Take 4 caplet by mouth daily as needed. 04/11 completed Not Available Not Available Not Available apixaban 2.5 mg tablet Take 1 tablet (2.5 mg total) by mouth every 12 (twelve) hours for 35 days. 12/12 completed Not Available Not Available Not Available Ozempic 1 mg/dose (4 mg/3 mL) subcutaneou s pen injector INJECT 1 MG (0.75 ML) SUBCUTANE OUSLY EVERY WEEK FOR 4 WEEKS active Not Available Not Available No t Available Ozempic 2 mg/dose (8 mg/3 mL) subcutaneou s pen injector INJECT 2 MG SUBCUTANE OUSLY ONCE A WEEK FOR 4 WEEKS active Not Available Not Available No t Available Ozempic 0.25 mg or 0.5 mg (2 mg/3 mL) subcutaneou s pen injector INJECT 0.25MG SUBCUTANE OUSLY WEEKLY active Not Available Not Available No t Available Vitals None Recorded Social History None recorded. Functional Status None recorded. Mental Status None recorded. Family History Nothing Reported. Medical History No medical history recorded. Gynecological HistoryNo gynecological history recorded. Obstetrics History GPAL:G 0 P 0 0 0 0 Immunizations Vaccine Type Date Status Note Provider Nam e and Address Organization Details Recorded Time COVID-19, mRNA, LNP-S, PF, 30 mcg/0.3 mL dose 02/07/2021 completed Not Available [facility] 5 06:11:48 COVID-19, mRNA, LNP-S, PF, 30 mcg/0.3 mL dose 01/17/2021 completed Not Available [facility] 5 06:11:48 Past Encounters Encounter ID Performer Location Encounter Start Date Encounter Closed Date Diagnosis/Indication Diagnosis SNOMED-CT Code Diagnosis ICD10 Code Diagnosis IMO Codes Diagnosis Note [id number] ZENAIDA BERRY [facility] [address] [place] [address] 03/11/2023 13:02:19 03/11/2023 13:39:00 Pain of left hip joint 4826680963 52945 M25.552 History of total replacement of right hip joint 2804308410 88924 Z96.641 [id number] ZENAIDA BERRY [facility] [address] [place] [address] 06/24/2025 10:44:53 06/24/2025 11:23:36 History of repair of hip joint 312555012 Z96.643 [id number] Health Concerns Section Related Observation LastModified by Organization Detai ls LastModified Time None Recorded Concern Status LastModified by Organization Details LastModified Time None Recorded Advance Directives Directive None Recorded Payers None recorded. Notes Date Note Type Note Provider Name and Address Organization Details Recorded Time 03/11/2023 text/html 67-year-old female is 1 year status post right-sided total [...] to do physical therapy. YASH OLEARY PA-C [address] [place] [address], [address], [place] [facility] 03/11/2023 13:37:12 06/24/2025 text/html 69-year-old female presents for evaluation of left hip and groin pain. She reports the onset of the symptoms approximately 1 month ago. Notably, she is status post left-sided total hip arthroplasty on November 09, [address] Huntley. She had a smooth recovery back to high level of comfort and function. There has been no new injury accident or trauma. She localizes her discomfort to the groin. She states that she recently, purposefully lost 22 pounds. As a result, her left lower extremity prosthetic is fitted poorly. She has plans to see her prosthetics to have an adjustment made. She suspects that this could have something to do with her left hip pain. She also reports an increased number of work days and work hours without a period of rest in between. YASH OLEARY PA-C [address] [place] [address], [place], [address], [place] [facility] 06/24/2025 11:30:28 OBGyn Episode No OBEpisode recorded.
== END 2025-09-27 14:34 | disposition home or self-care (01) ==
LOC: HO.HMCC 13:12
PROVIDERS: PCP Nurse Practitioner Family; Visit Provider Nurse Practitioner Family
DX: I10 Essential (primary) hypertension (principal); E78.5 Hyperlipidemia, unspecified

== ENCOUNTER → 2025-09-27 13:11 | Outpatient (BNVA) | payer MEDICARE, SELFPAY | PROVIDERS: PCP Nurse Practitioner Family; Visit Provider Nurse Practitioner Family | DX: I10 Essential (primary) hypertension (principal); E78.5 Hyperlipidemia, unspecified | CPT/HCPCS: 99212 ==